=== PATIENT | male | born 1970 | race Caucasian/White ===

== ENCOUNTER 2018-07-29 14:51 | Emergency (ER) | payer SELFPAY ==
[~2018-07-29] VITALS: Ht 182.9 cm; Wt 127.0 kg
[~2018-07-29 14:51] MED LIST: AGM875T PO; BUDE0.5A2 INH; CITA20TA4 PO; CYCL10TA9 PO; DIVA500T PO; DOXE50CA3 PO; GENT3.5O18 OU; HYDR-1231 PO; HYDR-34 PO; HYDR-3448 PO; IBP800T; IBP800T PO; PRD20T PO; Prednisone PO; QTP25T PO; RT-ALBUINH IH; TRAM-21 PO; TRAM50TA2 PO; TRM50T PO; [UNRECOGNIZED DRUG - OTHER]; [UNRECOGNIZED DRUG - OTHER]
--- OUTSIDE RECORDS SUMMARY | 2018-07-29 15:00 | XMS REPORT | Continuity of Care Document ---
Author Organization Unknown Address Unknown Allergies Active Description Code Type Severity Reaction Onset Reported/Identified Relationship to Patient Clinical Status Yes acetaminophen [id number] Drug Allergy Mild dizzy, itchy 12/03/2008 Yes codeine [id number] Drug Allergy Mild N/A 12/03/2008 Yes naproxen [id number] Drug Allergy Mild N/A 12/03/2008 Medications There is no data. Problems Date Dx Coded Attending Type Code Diagnosis Diagnosed By 11/07/2009 Ot V25.8 07/20/2010 Ot 682.7 07/20/2010 Ot 892.1 07/20/2010 Ot E000.8 07/20/2010 Ot E849.0 07/20/2010 Ot E920.8 07/21/2011 Ot 372.30 07/21/2011 Ot 379.93 05/06/2012 Ot 847.2 05/06/2012 Ot 922.31 05/06/2012 Ot 959.19 05/06/2012 Ot E000.8 05/06/2012 Ot E006.0 05/06/2012 Ot E849.4 05/06/2012 Ot E885.1 08/15/2012 KATHERINE HER, RICHARD Samuel Ot 296.20 08/15/2012 RICHARD MURPHY MD Ot V62.84 08/24/2012 YAS HER, FRANCK Luna Ot 780.2 08/24/2012 YAS HER, FRANCK Luna Ot 780.4 08/24/2012 YAS HER, FRANCK Luna Ot 787.01 08/26/2012 EVA KEENAN DO Ot 305.90 08/26/2012 EVA KEENAN DO Ot V62.84 10/27/2012 YAS HER, FRANCK Luna Ot 296.50 10/27/2012 YAS HER, FRANCK Luna Ot 300.00 10/27/2012 YAS HER, FRANCK T Ot 305.1 10/27/2012 YAS HER, FRANCK T Ot 873.41 10/27/2012 YAS HER, FRANCK T Ot 924.9 10/27/2012 YAS HER, FRANCK T Ot E029.9 10/27/2012 YAS HER, FRANCK T Ot E960.0 01/15/2013 TAMARA HER, PATEL Jovel Ot 724.2 02/10/2013 KATHERINE HER, RICHARD D Ot 847.9 02/10/2013 KATHERINE HER, RICHARD D Ot 959.19 02/10/2013 KATHERINE HER, RICHARD D Ot E000.8 02/10/2013 KATHERINE HER, RICHARD D Ot E849.0 02/10/2013 KATHERINE HER, RICHARD D Ot E960.0 02/10/2013 KATHERINE HER, RICHARD D Ot V04.81 10/10/2013 RADHA HER, CHARLIE A Ot 845.00 10/10/2013 RADHA HER, CHARLIE A Ot E000.8 10/10/2013 RADHA HER, CHARLIE A Ot E002.0 10/10/2013 RADHA HER, CHARLIE A Ot E849.8 10/10/2013 RADHA HER, CHARLIE A Ot E849.9 10/10/2013 RADHA HER, CHARLIE A Ot E927.0 12/20/2013 GODFREY GACRIA DO Ot 305.90 12/20/2013 GODFREY GARCIA DO Ot 733.6 12/20/2013 GODFREY GARCIA DO Ot 786.50 02/04/2014 DEWAYNE GUARDADO MD Ot 305.1 02/04/2014 DEWAYNE GUARDADO MD Ot 338.29 02/04/2014 DEWAYNE GUARDADO MD Ot 493.22 02/04/2014 DEWAYNE GUARDADO MD Ot 780.52 02/04/2014 DEWAYNE GUARDADO MD Ot V04.81 04/07/2014 Ot V25.8 05/12/2014 Ot V25.8 Procedures There is no data. Results There is no data. Encounters ACCT No. Visit Date/Time Discharge Status Pt. Type Provider Facility Loc./Unit Complaint [id number] 01/27/2014 22:05:00 02/04/2014 10:10:00 DIS Inpatient DEBBY HER, DEWAYNE Samuel Via [facility] 4TH [id number] 12/20/2013 10:07:00 12/20/2013 11:16:00 DIS Emergency RADHA GODFREY Lizzie Via [facility] ER [id number] 10/10/2013 21:38:00 10/10/2013 22:42:00 DIS Emergency CHARLIE GARCIA MD Via [facility] ER [id number] 02/10/2013 11:22:00 02/10/2013 12:20:00 DIS Emergency RICHARD MURPHY MD Via [facility] ER [id number] 01/15/2013 08:49:00 01/15/2013 11:50:00 DIS Emergency PATEL MCDONALD MD Via [facility] ER [id number] 10/27/2012 17:47:00 10/27/2012 19:14:00 DIS Emergency FRANCK SORENSON MD Via [facility] ER [id number] 08/25/2012 21:44:00 08/26/2012 01:02:00 DIS Emergency SHLOMOSherri ASHER EVA Med Via [facility] ER [id number] 08/23/2012 22:22:00 08/24/2012 03:30:00 DIS Emergency FRANCK SORENSON MD Via [facility] ER [id number] 08/14/2012 21:59:00 08/15/2012 01:30:00 DIS Emergency RICHARD MURPHY MD Via [facility] ER [id number] 05/06/2012 12:10:00 Document Registration [id number] 07/21/2011 09:41:00 Document Registration [id number] 07/20/2010 13:42:00 Document Registration [id number] 11/08/2009 00:00:00 Document Registration [id number] 08/09/2009 14:09:00 Document Registration
--- NOTE | 2018-07-29 15:16 | ED Lower Extremity ---
General Chief Complaint: Lower Extremity Stated Complaint: LEG SWELLING Nursing Triage Note: PT AMBULATES TO ROOM 6 PT CO OF LOWER EXTREMITY SWELLING FOR A COUPLE WEEKS CO OF KNEE PAIN AND JOINT PAIN, L SWOLLEN SL WORSE. Nursing Sepsis Screen: No Definite Risk Source: patient, RN notes reviewed Exam Limitations: no limitations History of Present Illness Date Seen by Provider: Jul 29, 2018 Time Seen by Provider: 15:15 Allergies and Home Medications Allergies Coded Allergies: codeine (Unverified Allergy, Mild, 12/03/08) naproxen (Unverified Allergy, Mild, 12/03/08) acetaminophen (Unverified Adverse Reaction, Mild, dizzy, itchy, 12/03/08) Home Medications Albuterol Sulfate 1 Puff Puff, 2 PUFF IH Q4H PRN for SHORTNESS OF BREATH MDI Prescribed by: DEWAYNE GUARDADO on 02/04/14 0827 Budesonide 0.25 Mg/Ml Soln, 0.5 MG INH RTBID Prescribed by: DEWAYNE GUARDADO on 02/04/14 0824 [Prednisone] 10 MG TAB, 50 MG PO DAILY TAPER DOSE INSTRUCTIONS DAY 2-3: 50MG DAY 4-5: 40MG DAY 6-7: 30MG DAY 8-9: 20MG DAY 10-11: 10MG Prescribed by: SAMMY ANGEL on 02/04/14 0939 Past Auwqtrk-Gethiw-Zgtygk Hx Patient Social History Alcohol Use: Rarely Uses Recreational Drug Use: Yes (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 ) Smoking Status: Current Everyday Smoker Type Used: Cigarettes Recent Foreign Travel: No Contact w/Someone Who Travel: No Recent Infectious Disease Expo: No Recent Hopitalizations: No Physical Abuse: No Sexual Abuse: No Immunizations Up To Date Tetanus Booster (TDap): Unknown PED Vaccines UTD: No Date of Pneumonia Vaccine: August 06, 2013 Past Medical History Surgeries: Yes (SKIN GRAFTS TO RIGHT FOOT, RECONSTRUCTIVE SURG RIGHT WRIST, ACL REPAIR LEFT) Gallbladder Respiratory: Yes Chronic Bronchitis, COPD Cardiac: No Neurological: Yes (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) Reproductive Disorders: No Sexually Transmitted Disease: No HIV/AIDS: No Genitourinary: No Gastrointestinal: Yes (GALLBLADDER REMOVED) Musculoskeletal: No Endocrine: Yes (HYPOGLYCEMIC) HEENT: No Cancer: No Psychosocial: Yes Anxiety, Suicide Attempts, Bipolar, Depression Integumentary: No Blood Disorders: No Adverse Reaction/Blood Tranf: No Family Medical History COPD (chronic obstructive pulmonary disease) 19 MOTHER Cervical cancer 19 MOTHER DVT 19 MOTHER FH: chronic renal insufficiency 19 MOTHER FH: sleep apnea 19 MOTHER Myocardial infarction 19 MOTHER Respiratory disorder 19 MOTHER Visual disorder 19 MOTHER G8 BROTHER No Pertinent Family Hx Physical Exam Vital Signs Vital Signs - First Documented 07/29/18 14:55 Temp 97.4 Pulse 70 Resp 18 B/P (MAP) 141/101 (114) Pulse Ox 97 Capillary Refill : Less Than 3 Seconds Height, Weight, BMI Height: 6'0" Weight: 280lbs. 5.0oz. 127.288292ds; BMI Method:Stated Progress/Results/Core Measures Results/Orders Vital Signs/I&O 07/29/18 14:55 Temp 97.4 Pulse 70 Resp 18 B/P (MAP) 141/101 (114) Pulse Ox 97 Blood Pressure Mean: 114 Departure Departure-Patient Inst. Referrals: NO,LOCAL PHYSICIAN (PCP) Primary Care Physician GODFREY GARCIA DO Jul 29, 2018 15:16
[2018-07-29 15:32] LABS: BASOPHILS % (AUTO) 0 % (0-10); EOSINOPHILS # (AUTO) 0.1 10^3/uL (0.0-0.3); EOSINOPHILS % (AUTO) 2 % (0-10); HEMATOCRIT 48 % (40-54); HEMOGLOBIN 16.5 G/DL (13.3-17.7); LYMPHOCYTES # (AUTO) 2.4 X 10^3 (1.0-4.0); LYMPHOCYTES % (AUTO) 34 % (12-44); MEAN CORPUSCULAR HEMOGLOBIN 33 PG (25-34); MEAN CORPUSCULAR HGB CONC 35 G/DL (32-36); MEAN CORPUSCULAR VOLUME 97 FL (80-99); MONOCYTES # (AUTO) 0.5 X 10^3 (0.0-1.0); MONOCYTES % (AUTO) 8 % (0-12); NEUTROPHILS # (AUTO) 4.1 X 10^3 (1.8-7.8); NEUTROPHILS % (AUTO) 57 % (42-75); PLATELET COUNT 211 10^3/uL (130-400); RED CELL DISTRIBUTION WIDTH 13.4 % (10.0-14.5); WHITE BLOOD COUNT 7.2 10^3/uL (4.3-11.0)
--- NOTE | 2018-07-29 15:39 | ED Lower Extremity ---
General Chief Complaint: Lower Extremity Stated Complaint: LEG SWELLING Nursing Triage Note: PT AMBULATES TO ROOM 6 PT CO OF LOWER EXTREMITY SWELLING FOR A COUPLE WEEKS CO OF KNEE PAIN AND JOINT PAIN, L SWOLLEN SL WORSE. Nursing Sepsis Screen: No Definite Risk Source: patient Exam Limitations: no limitations History of Present Illness Date Seen by Provider: Jul 29, 2018 Time Seen by Provider: 15:08 Initial Comments 48-year-old male who presents to the emergency room with complaints of bilateral lower extremity swelling for the past 2 weeks. He reports knee and an ankle joint pain with the swelling. He denies seeing his primary care provider. He denies any shortness of breath or chest pain. He reports that the swelling is worse after being on his feet all day and is gone when he wakes up in the mornings. Pain/Injury Location: bilateral knee, bilateral ankle Allergies and Home Medications Allergies Coded Allergies: codeine (Unverified Allergy, Mild, 12/03/08) naproxen (Unverified Allergy, Mild, 12/03/08) acetaminophen (Unverified Adverse Reaction, Mild, dizzy, itchy, 12/03/08) Home Medications Albuterol Sulfate 1 Puff Puff, 2 PUFF IH Q4H PRN for SHORTNESS OF BREATH MDI Prescribed by: DEWAYNE GUARDADO on 02/04/14 0827 Budesonide 0.25 Mg/Ml Soln, 0.5 MG INH RTBID Prescribed by: DEWAYNE GUARDADO on 02/04/14 0824 [Prednisone] 10 MG TAB, 50 MG PO DAILY TAPER DOSE INSTRUCTIONS DAY 2-3: 50MG DAY 4-5: 40MG DAY 6-7: 30MG DAY 8-9: 20MG DAY 10-11: 10MG Prescribed by: SAMMY ANGEL on 02/04/14 0939 Past Fehwlex-Iiyalh-Cjkafh Hx Patient Social History Alcohol Use: Rarely Uses Recreational Drug Use: Yes (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 ) Smoking Status: Current Everyday Smoker Type Used: Cigarettes Recent Foreign Travel: No Contact w/Someone Who Travel: No Recent Infectious Disease Expo: No Recent Hopitalizations: No Physical Abuse: No Sexual Abuse: No Immunizations Up To Date Tetanus Booster (TDap): Unknown PED Vaccines UTD: No Date of Pneumonia Vaccine: August 06, 2013 Past Medical History Surgeries: Yes (SKIN GRAFTS TO RIGHT FOOT, RECONSTRUCTIVE SURG RIGHT WRIST, ACL REPAIR LEFT) Gallbladder Respiratory: Yes Chronic Bronchitis, COPD Cardiac: No Neurological: Yes (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) Reproductive Disorders: No Sexually Transmitted Disease: No HIV/AIDS: No Genitourinary: No Gastrointestinal: Yes (GALLBLADDER REMOVED) Musculoskeletal: No Endocrine: Yes (HYPOGLYCEMIC) HEENT: No Cancer: No Psychosocial: Yes Anxiety, Suicide Attempts, Bipolar, Depression Integumentary: No Blood Disorders: No Adverse Reaction/Blood Tranf: No Family Medical History COPD (chronic obstructive pulmonary disease) 19 MOTHER Cervical cancer 19 MOTHER DVT 19 MOTHER FH: chronic renal insufficiency 19 MOTHER FH: sleep apnea 19 MOTHER Myocardial infarction 19 MOTHER Respiratory disorder 19 MOTHER Visual disorder 19 MOTHER G8 BROTHER No Pertinent Family Hx Physical Exam Vital Signs Vital Signs - First Documented 07/29/18 14:55 Temp 97.4 Pulse 70 Resp 18 B/P (MAP) 141/101 (114) Pulse Ox 97 Capillary Refill : Less Than 3 Seconds Height, Weight, BMI Height: 6'0" Weight: 280lbs. 5.0oz. 127.233609bo; BMI Method:Stated Progress/Results/Core Measures Results/Orders Lab Results Laboratory Tests Test 07/29/18 15:25 Range/Units White Blood Count 7.2 4.3-11.0 10^3/uL Red Blood Count 4.94 4.35-5.85 10^6/uL Hemoglobin 16.5 13.3-17.7 G/DL Hematocrit 48 40-54 % Mean Corpuscular Volume 97 80-99 FL Mean Corpuscular Hemoglobin 33 25-34 PG Mean Corpuscular Hemoglobin Concent 35 32-36 G/DL Red Cell Distribution Width 13.4 10.0-14.5 % Platelet Count 211 130-400 10^3/uL Mean Platelet Volume 10.0 7.4-10.4 FL Neutrophils (%) (Auto) 57 42-75 % Lymphocytes (%) (Auto) 34 12-44 % Monocytes (%) (Auto) 8 0-12 % Eosinophils (%) (Auto) 2 0-10 % Basophils (%) (Auto) 0 0-10 % Neutrophils # (Auto) 4.1 1.8-7.8 X 10^3 Lymphocytes # (Auto) 2.4 1.0-4.0 X 10^3 Monocytes # (Auto) 0.5 0.0-1.0 X 10^3 Eosinophils # (Auto) 0.1 0.0-0.3 10^3/uL Basophils # (Auto) 0.0 0.0-0.1 10^3/uL D-Dimer 0.30 0.00-0.49 UG/ML Sodium Level 139 135-145 MMOL/L Potassium Level 4.1 3.6-5.0 MMOL/L Chloride Level 104 98-107 MMOL/L Carbon Dioxide Level 28 21-32 MMOL/L Anion Gap 7 5-14 MMOL/L Blood Urea Nitrogen 9 7-18 MG/DL Creatinine 0.88 0.60-1.30 MG/DL Estimat Glomerular Filtration Rate > 60 BUN/Creatinine Ratio 10 Glucose Level 196 H 70-105 MG/DL Calcium Level 8.9 8.5-10.1 MG/DL Corrected Calcium 9.1 8.5-10.1 MG/DL Total Bilirubin 0.5 0.1-1.0 MG/DL Aspartate Amino Transf (AST/SGOT) 40 H 5-34 U/L Alanine Aminotransferase (ALT/SGPT) 83 H 0-55 U/L Alkaline Phosphatase 101 40-136 U/L B-Type Natriuretic Peptide 12.9 <100.0 PG/ML Total Protein 6.5 6.4-8.2 GM/DL Albumin 3.7 3.2-4.5 GM/DL My Orders Orders - BRITTANY POMPAIS BNP (07/29/18 15:17) Cbc With Automated Diff (07/29/18 15:17) Comprehensive Metabolic Panel (07/29/18 15:17) Fibrin Degradation Products (07/29/18 15:17) Vital Signs/I&O 07/29/18 14:55 Temp 97.4 Pulse 70 Resp 18 B/P (MAP) 141/101 (114) Pulse Ox 97 Blood Pressure Mean: 114 Departure Impression Primary Impression: Dependent edema Disposition: 01 HOME, SELF-CARE Condition: Stable/Unchanged Departure-Patient Inst. Decision time for Depature: 16:25 Referrals: NO,LOCAL PHYSICIAN (PCP) Primary Care Physician Patient Instructions: Dependent Edema (DC) Add. Discharge Instructions: Wear the compression stockings while awake. Remove at night time. Follow-up with your primary care provider within 1 week for recheck. Return back to the emergency room for worsening symptoms or concerns as needed. All discharge instructions reviewed with patient and/or family. Voiced understanding. MECHE POMPA Jul 29, 2018 15:39
[2018-07-29 15:49] LABS: ALANINE AMINOTRANSFERASE 83 U/L (0-55); ALBUMIN 3.7 GM/DL (3.2-4.5); ALKALINE PHOSPHATASE 101 U/L (40-136); BILIRUBIN,TOTAL 0.5 MG/DL (0.1-1.0); BUN/CREATININE RATIO 10; CALCIUM 8.9 MG/DL (8.5-10.1); CARBON DIOXIDE 28 MMOL/L (21-32); CHLORIDE 104 MMOL/L (98-107); CREATININE SERUM 0.88 MG/DL (0.60-1.30); GFR ESTIMATED > 60; GLUCOSE 196 MG/DL (70-105); POTASSIUM 4.1 MMOL/L (3.6-5.0); SODIUM 139 MMOL/L (135-145); TOTAL PROTEIN 6.5 GM/DL (6.4-8.2)
[2018-07-29 16:49] VITALS: BP 141/101
== END 2018-07-29 16:50 | disposition home or self-care (01) ==
LOC: EDUNIT# 14:51 → ER 14:52
DX: R60.0 Localized edema (principal); J44.9 Chronic obstructive pulmonary disease, unspecified; G40.409 Other generalized epilepsy and epileptic syndromes, not intractable, without status epilepticus; F41.9 Anxiety disorder, unspecified; F31.9 Bipolar disorder, unspecified; F17.210 Nicotine dependence, cigarettes, uncomplicated; Z98.890 Other specified postprocedural states; Z91.5 Personal history of self-harm; Z80.49 Family history of malignant neoplasm of other genital organs; Z82.49 Family history of ischemic heart disease and other diseases of the circulatory system; Z94.5 Skin transplant status; Z88.5 Allergy status to narcotic agent; Z88.8 Allergy status to other drugs, medicaments and biological substances; Z79.52 Long term (current) use of systemic steroids
CPT/HCPCS: 36415; 80053; 83880; 85025; 85379

== ENCOUNTER 2018-09-01 13:01 | Inpatient (IN) | payer SELFPAY ==
[~2018-09-01] VITALS: Ht 182.9 cm; Wt 142.5 kg
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
[2018-09-01] MEDS ORDERED: NS IV 1000 ML 1,000 ML IV ONE ×2 (13:14→13:37)
[2018-09-01 13:24] LABS: BASOPHILS % (AUTO) 0 % (0-10); EOSINOPHILS # (AUTO) 0.1 10^3/uL (0.0-0.3); EOSINOPHILS % (AUTO) 1 % (0-10); HEMATOCRIT 51 % (40-54); HEMOGLOBIN 18.7 G/DL (13.3-17.7); LYMPHOCYTES # (AUTO) 2.3 X 10^3 (1.0-4.0); LYMPHOCYTES % (AUTO) 24 % (12-44); MEAN CORPUSCULAR HEMOGLOBIN 33 PG (25-34); MEAN CORPUSCULAR HGB CONC 37 G/DL (32-36); MEAN CORPUSCULAR VOLUME 90 FL (80-99); MONOCYTES # (AUTO) 0.6 X 10^3 (0.0-1.0); MONOCYTES % (AUTO) 6 % (0-12); NEUTROPHILS # (AUTO) 6.8 X 10^3 (1.8-7.8); NEUTROPHILS % (AUTO) 70 % (42-75); PLATELET COUNT 305 10^3/uL (130-400); RED CELL DISTRIBUTION WIDTH 12.8 % (10.0-14.5); WHITE BLOOD COUNT 9.7 10^3/uL (4.3-11.0)
[2018-09-01 13:28] LABS: BILIRUBIN,URINE NEGATIVE (NEGATIVE); CLARITY,URINE CLEAR; COLOR,URINE YELLOW; GLUCOSE, URINE (UA) 4+ (NEGATIVE); KETONES,URINE 2+ (NEGATIVE); LEUKOCYTE ESTERASE ,URINE NEGATIVE (NEGATIVE); NITRITE,URINE NEGATIVE (NEGATIVE); PH,URINE 5 (5-9); PROTEIN,URINE 1+ (NEGATIVE); UROBILINOGEN,URINE NORMAL (NORMAL)
[2018-09-01 13:36] LABS: BACTERIA,URINE NEGATIVE /HPF; GRANULAR CASTS,URINE 0-2 /LPF; HYALINE CASTS, URINE 0-2 /LPF; SQUAMOUS EPITHELIAL CELL,UR RARE /HPF; WBC,URINE 0-2 /HPF
--- NOTE | 2018-09-01 13:41 | Diagnostic Imaging Report ---
INDICATION: Generalized weakness COMPARISON: 01/30/2014 FINDINGS: Single view the chest demonstrates clear lungs bilaterally. The heart size is normal. There is no pneumothorax. Osseous structures are normal. IMPRESSION: No acute findings. Normal chest. Dictated by: Dictated on workstation # [id number]
[2018-09-01 13:42] LABS: AMPHETAMINE SCREEN, URINE POSITIVE (NEGATIVE); BARBITURATE SCREEN URINE NEGATIVE (NEGATIVE); BENZODIAZEPINES SCREEN URINE NEGATIVE (NEGATIVE); CANNABINOID SCREEN, URINE POSITIVE (NEGATIVE); COCAINE SCREEN URINE NEGATIVE (NEGATIVE); METHADONE STAT NEGATIVE (NEGATIVE); METHAMPHETAMINE SCREEN URINE S POSITIVE (NEGATIVE); OPIATE SCREEN URINE NEGATIVE (NEGATIVE); OXYCODONE STAT NEGATIVE (NEGATIVE); PROPOXYPHENE STAT NEGATIVE (NEGATIVE); TRICYCLIC ANTIDEPRESSANTS SCRE NEGATIVE (NEGATIVE)
[2018-09-01 13:43] LABS: ALANINE AMINOTRANSFERASE 116 U/L (0-55); ALBUMIN 4.2 GM/DL (3.2-4.5); ALKALINE PHOSPHATASE 169 U/L (40-136); BILIRUBIN,TOTAL 1.2 MG/DL (0.1-1.0); BUN/CREATININE RATIO 13; CALCIUM 9.5 MG/DL (8.5-10.1); CARBON DIOXIDE 26 MMOL/L (21-32); CHLORIDE 95 MMOL/L (98-107); CREATININE SERUM 1.19 MG/DL (0.60-1.30); GFR ESTIMATED > 60; POTASSIUM 4.1 MMOL/L (3.6-5.0); SODIUM 137 MMOL/L (135-145); TOTAL PROTEIN 7.8 GM/DL (6.4-8.2)
--- NOTE | 2018-09-01 13:44 | ED General ---
General Chief Complaint: Glucose Problems Stated Complaint: LETHARGIC,DIZZINESS Nursing Triage Note: pt states over the last 4 days he has had increased sleeping and increased urination. pt states he has a few episodes of vomiting. pt states he has had an increase in thirst. pt states he has been able to eat. pt denies diarrhea. pt denies any pmh regarding diabetes. Nursing Sepsis Screen: No Definite Risk Source of Information: Patient, Family Exam Limitations: No Limitations History of Present Illness Date Seen by Provider: September 01, 2018 Time Seen by Provider: 13:18 Initial Comments Here with report of increasing first, increasing weakness, increasing urination and overall not feeling well for the last 4 days. He is worried that he is diabetic his diabetes runs in his family. Does smoke but has been too weak to smoke over the last couple of days. Denies drugs or alcohol. Has had a few episodes of vomiting. Denies any specific pain but just has weakness. Timing/Duration: 4-5 Days, Getting Worse Severity: Moderate, Severe Associated Systoms: No Chest Pain, No Cough, No Fever/Chills; Malaise, Nausea/Vomiting; No Shortness of Air; Weakness Allergies and Home Medications Allergies Coded Allergies: codeine (Unverified Allergy, Mild, 12/03/08) naproxen (Unverified Allergy, Mild, 12/03/08) acetaminophen (Unverified Adverse Reaction, Mild, dizzy, itchy, 12/03/08) Home Medications Albuterol Sulfate 1 Puff Puff, 2 PUFF IH Q4H PRN for SHORTNESS OF BREATH MDI Prescribed by: DEWAYNE GUARDADO on 02/04/14826 Budesonide 0.25 Mg/Ml Soln, 0.5 MG INH RTBID Prescribed by: DEWAYNE GUARDADO on 02/04/14823 [Prednisone] 10 MG TAB, 50 MG PO DAILY TAPER DOSE INSTRUCTIONS DAY 2-3: 50MG DAY 4-5: 40MG DAY 6-7: 30MG DAY 8-9: 20MG DAY 10-11: 10MG Prescribed by: SAMMY ANGEL on 02/04/14 0939 Patient Home Medication List Home Medication List Reviewed: Yes Review of Systems Review of Systems Constitutional: see HPI; No chills, No fever EENTM: see HPI Respiratory: No cough; short of breath Cardiovascular: No edema Gastrointestinal: No abdominal pain; nausea, vomiting Genitourinary: frequency; No pain Musculoskeletal: No muscle pain; muscle weakness Skin: no symptoms reported Psychiatric/Neurological: Denies Headache, Denies Numbness; Weakness All Other Systems Reviewed Negative Unless Noted: Yes Past Nxrhatn-Vjuwsr-Lomzny Hx Past Med/Social Hx: Reviewed Nursing Past Med/Soc Hx Patient Social History Alcohol Use: Denies Use Recreational Drug Use: Yes (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) Smoking Status: Current Everyday Smoker Type Used: Cigarettes Recent Foreign Travel: No Contact w/Someone Who Travel: No Recent Infectious Disease Expo: No Recent Hopitalizations: No Physical Abuse: No Sexual Abuse: No Mistreated: No Fear: No Immunizations Up To Date Tetanus Booster (TDap): Unknown PED Vaccines UTD: No Date of Pneumonia Vaccine: August 06, 2013 Past Medical History Surgeries: Yes (SKIN GRAFTS TO RIGHT FOOT, RECONSTRUCTIVE SURG RIGHT WRIST, ACL REPAIR LEFT) Gallbladder Respiratory: Yes Chronic Bronchitis, COPD Cardiac: No Neurological: Yes (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) Reproductive Disorders: No Sexually Transmitted Disease: No HIV/AIDS: No Genitourinary: No Gastrointestinal: Yes (GALLBLADDER REMOVED) Musculoskeletal: No Endocrine: Yes (HYPOGLYCEMIC) HEENT: No Cancer: No Psychosocial: Yes Anxiety, Suicide Attempts, Bipolar, Depression Integumentary: No Blood Disorders: No Adverse Reaction/Blood Tranf: No Family Medical History Reviewed Nursing Family Hx COPD (chronic obstructive pulmonary disease) 19 MOTHER Cervical cancer 19 MOTHER DVT 19 MOTHER FH: chronic renal insufficiency 19 MOTHER FH: sleep apnea 19 MOTHER Myocardial infarction 19 MOTHER Respiratory disorder 19 MOTHER Visual disorder 19 MOTHER G8 BROTHER No Pertinent Family Hx Physical Exam Vital Signs Vital Signs - First Documented 09/01/18 13:15 Temp 97.0 Pulse 104 Resp 18 B/P (MAP) 122/109 (113) Capillary Refill : Less Than 3 Seconds Height, Weight, BMI Height: 6'0" Weight: 280lbs. 5.0oz. 127.634409ri; 37.97 BMI Method:Stated General Appearance: No Apparent Distress, WD/WN HEENT: PERRL/EOMI, Pharynx Normal Neck: Non Tender, Supple Respiratory: Lungs Clear, Normal Breath Sounds Cardiovascular: Regular Rate, Rhythm, No Murmur Gastrointestinal: Non Tender, Soft Back: Normal Inspection, No CVA Tenderness, No Vertebral Tenderness Extremity: Normal Range of Motion, Non Tender Neurologic/Psychiatric: Alert, Oriented x3 Skin: Normal Color, Warm/Dry Progress/Results/Core Measures Suspected Sepsis Recent Fever Within 48 Hours: No Infection Criteria Present: None New/Unexplained Altered Menta: No Sepsis Screen: No Definite Risk SIRS Temperature:97.0 Pulse: 104 Respiratory Rate: 18 Laboratory Tests 09/01/18 13:15: White Blood Count 9.7 Blood Pressure 122 /109 Mean: 113 Laboratory Tests 09/01/18 13:15: Creatinine 1.19, Platelet Count 305, Total Bilirubin 1.2H Results/Orders Lab Results Laboratory Tests Test 09/01/18 13:15 09/01/18 13:17 09/01/18 13:23 09/01/18 13:47 Range/Units White Blood Count 9.7 4.3-11.0 10^3/uL Red Blood Count 5.71 4.35-5.85 10^6/uL Hemoglobin 18.7 H 13.3-17.7 G/DL Hematocrit 51 40-54 % Mean Corpuscular Volume 90 80-99 FL Mean Corpuscular Hemoglobin 33 25-34 PG Mean Corpuscular Hemoglobin Concent 37 H 32-36 G/DL Red Cell Distribution Width 12.8 10.0-14.5 % Platelet Count 305 130-400 10^3/uL Mean Platelet Volume 11.0 H 7.4-10.4 FL Neutrophils (%) (Auto) 70 42-75 % Lymphocytes (%) (Auto) 24 12-44 % Monocytes (%) (Auto) 6 0-12 % Eosinophils (%) (Auto) 1 0-10 % Basophils (%) (Auto) 0 0-10 % Neutrophils # (Auto) 6.8 1.8-7.8 X 10^3 Lymphocytes # (Auto) 2.3 1.0-4.0 X 10^3 Monocytes # (Auto) 0.6 0.0-1.0 X 10^3 Eosinophils # (Auto) 0.1 0.0-0.3 10^3/uL Basophils # (Auto) 0.0 0.0-0.1 10^3/uL Sodium Level 137 135-145 MMOL/L Potassium Level 4.1 3.6-5.0 MMOL/L Chloride Level 95 L 98-107 MMOL/L Carbon Dioxide Level 26 21-32 MMOL/L Anion Gap 16 H 5-14 MMOL/L Blood Urea Nitrogen 15 7-18 MG/DL Creatinine 1.19 0.60-1.30 MG/DL Estimat Glomerular Filtration Rate > 60 BUN/Creatinine Ratio 13 Glucose Level 429 *H 70-105 MG/DL Calcium Level 9.5 8.5-10.1 MG/DL Corrected Calcium 9.3 8.5-10.1 MG/DL Total Bilirubin 1.2 H 0.1-1.0 MG/DL Aspartate Amino Transf (AST/SGOT) 92 H 5-34 U/L Alanine Aminotransferase (ALT/SGPT) 116 H 0-55 U/L Alkaline Phosphatase 169 H 40-136 U/L Troponin I < 0.028 <0.028 NG/ML C-Reactive Protein High Sensitivity 1.38 H 0.00-0.50 MG/DL Total Protein 7.8 6.4-8.2 GM/DL Albumin 4.2 3.2-4.5 GM/DL Thyroid Stimulating Hormone (TSH) 3.42 0.35-4.94 UIU/ML Glucometer 411 *H 70-110 MG/DL Urine Color YELLOW Urine Clarity CLEAR Urine pH 5 5-9 Urine Specific [place] 1.020 1.016-1.022 Urine Protein 1+ H NEGATIVE Urine Glucose (UA) 4+ H NEGATIVE Urine Ketones 2+ H NEGATIVE Urine Nitrite NEGATIVE NEGATIVE Urine Bilirubin NEGATIVE NEGATIVE Urine Urobilinogen NORMAL NORMAL MG/DL Urine Leukocyte Esterase NEGATIVE NEGATIVE Urine RBC (Auto) NEGATIVE NEGATIVE Urine RBC NONE /HPF Urine WBC 0-2 /HPF Urine Squamous Epithelial Cells RARE /HPF Urine Crystals NONE /LPF Urine Bacteria NEGATIVE /HPF Urine Casts PRESENT /LPF Urine Hyaline Casts 0-2 H /LPF Urine Granular Casts 0-2 H /LPF Urine Mucus NEGATIVE /LPF Urine Culture Indicated NO Urine Opiates Screen NEGATIVE NEGATIVE Urine Oxycodone Screen NEGATIVE NEGATIVE Urine Methadone Screen NEGATIVE NEGATIVE Urine Propoxyphene Screen NEGATIVE NEGATIVE Urine Barbiturates Screen NEGATIVE NEGATIVE Ur Tricyclic Antidepressants Screen NEGATIVE NEGATIVE Urine Phencyclidine Screen NEGATIVE NEGATIVE Urine Amphetamines Screen POSITIVE H NEGATIVE Urine Methamphetamines Screen POSITIVE H NEGATIVE Urine Benzodiazepines Screen NEGATIVE NEGATIVE Urine Cocaine Screen NEGATIVE NEGATIVE Urine Cannabinoids Screen POSITIVE H NEGATIVE Blood Gas Puncture Site RT RAD Blood Gas Patient Temperature 98.7 Arterial Blood pH 7.39 7.37-7.43 Arterial Blood Partial Pressure CO2 46 H 35-45 MMHG Arterial Blood Partial Pressure O2 64 L 79-93 MMHG Arterial Blood HCO3 27 23-27 MMOL/L Arterial Blood Total CO2 28.6 21.0-31.0 MMOL/L Arterial Blood Oxygen Saturation 95 94-100 % Arterial Blood Base Excess 2.7 H -2.5-2.5 MMOL/L Gordo Test YES-POS Blood Gas Ventilator Setting NO Blood Gas Inspired Oxygen ROOM AIR My Orders Orders - RICHARD MUPRHY MD Cbc With Automated Diff (09/01/18 13:14) Comprehensive Metabolic Panel (09/01/18 13:14) Hs C Reactive Protein (09/01/18 13:14) Drug Screen Stat (Urine) (09/01/18 13:14) Thyroid Stimulating Hormone (09/01/18 13:14) Troponin I (09/01/18 13:14) Ua Culture If Indicated (09/01/18 13:14) Accucheck Stat ONCE (09/01/18 13:14) Chest 1 View, Ap/Pa Only (09/01/18 13:14) Ekg Tracing (09/01/18 13:14) Monitor-Rhythm Ecg Trace Only (09/01/18 13:14) Ed Iv/Invasive Line Start (09/01/18 13:14) Ns Iv 1000 Ml (Sodium Chloride 0.9%) (09/01/18 13:14) I-Stat Bedside Testing (09/01/18 13:16) Arterial Blood Gas (09/01/18 13:37) Ns Iv 1000 Ml (Sodium Chloride 0.9%) (09/01/18 13:37) Insulin (Regular) Human (Humulin R (Per (09/01/18 14:38) Medications Given in ED Current Medications Medications Dose Ordered Sig/Tyler Route Start Time Stop Time Status Last Admin Dose Admin Sodium Chloride 1,000 ml @ 0 mls/hr Q0M ONCE IV 09/01/18 13:14 09/01/18 13:16 DC 09/01/18 13:32 0 MLS/HR Vital Signs/I&O 09/01/18 13:15 Temp 97.0 Pulse 104 Resp 18 B/P (MAP) 122/109 (113) Capillary Refill : Less Than 3 Seconds Blood Pressure Mean: 113 Point of Care Testing Finger Stick Blood Glucose: 411 Progress Note : Progress Note Seen and evaluated. IV, labs, UA, normal saline 1 L bolus, i-STAT and chest x- ray ordered. We will also check EKG. Patient is tachycardic. He is also tachypneic. ECG Initial ECG Impression Date: September 01, 2018 Initial ECG Impression Time: 13:17 Initial ECG Rate: 93 Initial ECG Rhythm: Normal Sinus Comment Sinus rhythm with right axis deviation. No evidence of ST elevation [place]. Similar but progressed right axis deviation from 01/27/14. Interpreted by me. Diagnostic Imaging Diagonstic Imaging: Xray Plain Films/CT/US/NM/MRI: chest Comments NAME: ERIK LEONARD [facility] REC#: [id number] PT STATUS: REG ER : 1970 PHYSICIAN: RICHARD MURPHY MD ADMIT DATE: 09/01/18/ER Signed Date of Exam: 09/01/18 CHEST 1 VIEW, AP/PA ONLY INDICATION: Generalized weakness COMPARISON: 01/30/2014 FINDINGS: Single view the chest demonstrates clear lungs bilaterally. The heart size is normal. There is no pneumothorax. Osseous structures are normal. IMPRESSION: No acute findings. Normal chest. Dictated by: Dictated on workstation # [id number] Dict: 09/01/18 1341 Trans: 09/01/18 1341 Interpreted by: OZZIE ABDULLAHI Electronically signed by: OZZIE ABDULLAHI 09/01/18 1341 Departure Communication (Admissions) Time/Spoke to Admitting Phy: 14:42 Impression Primary Impression: New onset type 1 diabetes mellitus, uncontrolled Disposition: ADMITTED INPATIENT Condition: Stable Admissions Decision to Admit Reason: Admit from ER (General) Decision to Admit/Date: September 01, 2018 Time/Decision to Admit Time: 14:42 Departure-Patient Inst. Referrals: NO,LOCAL PHYSICIAN (PCP/Family) Primary Care Physician RICHARD MURPHY MD September 01, 2018 13:43
[2018-09-01 13:50] LABS: GLUCOSE 429 MG/DL (70-105)
[2018-09-01 13:55] LABS: ABG BASE EXCESS 2.7 MMOL/L (-2.5-2.5); ABG OXYGEN SATURATION 95 % (94-100); ABG PCO2 46 MMHG (35-45); ABG PH 7.39 (7.37-7.43); ABG PO2 64 MMHG (79-93); ABG TCO2 28.6 MMOL/L (21.0-31.0); ALLENS TEST YES-POS; INSPIRED O2 ROOM AIR; PATIENT TEMP 98.7; VENTILATOR NO
[2018-09-01] MEDS ORDERED: inSUlin (REGULAR) HUMAN 1 UNIT/0.01 ML (CHARGE PER UNIT) IV STA (14:38)
[2018-09-01 15:51] VITALS: BP 137/82
[2018-09-01] MEDS ORDERED: inSUlin ASPART (NovoLOG) 1 UNIT/0.01 ML (CHARGE PER UNIT) SC SCH (16:00)
[2018-09-01] MEDS: NS IV 1000 ML 1,000 ML IV SCH (16:20)
[2018-09-01 19:50] VITALS: BP 128/70
[2018-09-01] MEDS ORDERED: inSUlin ASPART (NovoLOG) 1 UNIT/0.01 ML (CHARGE PER UNIT) SC ONE (21:15)
[2018-09-01] MEDS ORDERED: inSUlin ASPART (NovoLOG) 1 UNIT/0.01 ML (CHARGE PER UNIT) ONE (21:22)
[2018-09-01 23:38] VITALS: BP 111/76
[2018-09-02] MEDS: NS IV 1000 ML 1,000 ML IV SCH ×3 (00:08→16:01)
[2018-09-02 04:17] VITALS: BP 152/77
[2018-09-02 05:37] LABS: BASOPHILS % (AUTO) 0 % (0-10); EOSINOPHILS # (AUTO) 0.1 10^3/uL (0.0-0.3); EOSINOPHILS % (AUTO) 1 % (0-10); HEMATOCRIT 46 % (40-54); HEMOGLOBIN 16.3 G/DL (13.3-17.7); LYMPHOCYTES # (AUTO) 2.1 X 10^3 (1.0-4.0); LYMPHOCYTES % (AUTO) 31 % (12-44); MEAN CORPUSCULAR HEMOGLOBIN 33 PG (25-34); MEAN CORPUSCULAR HGB CONC 36 G/DL (32-36); MEAN CORPUSCULAR VOLUME 92 FL (80-99); MEAN PLATELET VOLUME 10.8 FL (7.4-10.4); MONOCYTES # (AUTO) 0.5 X 10^3 (0.0-1.0); MONOCYTES % (AUTO) 7 % (0-12); NEUTROPHILS # (AUTO) 4.1 X 10^3 (1.8-7.8); NEUTROPHILS % (AUTO) 61 % (42-75); PLATELET COUNT 210 10^3/uL (130-400); RED CELL DISTRIBUTION WIDTH 12.6 % (10.0-14.5); WHITE BLOOD COUNT 6.8 10^3/uL (4.3-11.0)
[2018-09-02 06:08] LABS: ALANINE AMINOTRANSFERASE 85 U/L (0-55); ALBUMIN 3.4 GM/DL (3.2-4.5); ALKALINE PHOSPHATASE 124 U/L (40-136); BILIRUBIN,TOTAL 0.8 MG/DL (0.1-1.0); BUN/CREATININE RATIO 13; CALCIUM 8.1 MG/DL (8.5-10.1); CARBON DIOXIDE 25 MMOL/L (21-32); CHLORIDE 103 MMOL/L (98-107); CREATININE SERUM 1.04 MG/DL (0.60-1.30); GFR ESTIMATED > 60; GLUCOSE 278 MG/DL (70-105); POTASSIUM 3.9 MMOL/L (3.6-5.0); SODIUM 136 MMOL/L (135-145); TOTAL PROTEIN 6.2 GM/DL (6.4-8.2)
[2018-09-02] MEDS: inSUlin ASPART (NovoLOG) 1 UNIT/0.01 ML (CHARGE PER UNIT) SC SCH ×3 (06:20→16:01)
[2018-09-02 07:29] VITALS: BP 139/83
--- NOTE | 2018-09-02 08:49 | NUR ---
PATIENT STATES HE DOES NOT CURRENTLY TAKE ANY MEDICATIONS, PRESCRIPTION OR OTC.
[2018-09-02 11:30] VITALS: BP 170/110
--- NOTE | 2018-09-02 11:40 | NUR ---
DR. MCDONALD NOTIFIED AT THIS TIME OF B/P THAT IS ELEVATED AT 170/110 NO NEW ORDERS AT THIS TIME.
--- NOTE | 2018-09-02 14:05 | NUR ---
REPORT RECEIVED FROM MARIE CARREON. ASSUMED CARE OF THE PATIENT AT THIS TIME.
[2018-09-02] MEDS ORDERED: inSUlin ASPART (NovoLOG) 1 UNIT/0.01 ML (CHARGE PER UNIT) SC SCH (16:00)
[2018-09-02 16:02] VITALS: BP 142/95
--- NOTE | 2018-09-02 16:21 | History & Physical-Hospitalist ---
History of Present Illness HPI/Chief Complaint The patient is a 48-year-old white male who presented to the emergency room with complaints of weakness, thirst, frequency of urination for about the last 2 weeks. He was found to have markedly elevated blood glucose and was admitted for treatment. Date Seen 09/02/18 Time Seen by a Provider: 16:20 Attending Physician Ramon Danielle MD PCP No,Local Physician Referring Physician Date of Admission September 01, 2018 at 14:42 Home Medications & Allergies Home Medications Reviewed patient Home Medication Reconciliation performed by pharmacy medication reconciliations model technician and/or nursing. Patients Allergies have been reviewed. Allergies Allergies Coded Allergies codeine (Unverified Allergy, Mild, 12/03/08) naproxen (Unverified Allergy, Mild, 12/03/08) acetaminophen (Unverified Adverse Reaction, Mild, dizzy, itchy, 12/03/08) Past Slgpynb-Rpeimr-Fnrquu Hx Past Med/Social Hx: Reviewed Nursing Past Med/Soc Hx Patient Social History Alcohol Use: Denies Use Recreational Drug Use: Yes (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) Smoking Status: Current Everyday Smoker Type Used: Cigarettes Recent Foreign Travel: No Contact w/other who traveled: No Recent Hopitalizations: No Recent Infectious Disease Expo: No Immunizations Up To Date Tetanus Booster (TDap): Unknown Pediatric: No Date of Pneumonia Vaccine: August 06, 2013 Past Medical History Surgeries: Gallbladder Reproductive: No Sexually Transmitted Disease: No HIV/AIDS: No Psychosocial: Anxiety, Suicide Attempts, Bipolar, Depression History of Blood Disorders: No Adverse Reaction to Blood [place]: No Family History Reviewed Nursing Family Hx COPD (chronic obstructive pulmonary disease) 19 MOTHER Cervical cancer 19 MOTHER DVT 19 MOTHER FH: chronic renal insufficiency 19 MOTHER FH: sleep apnea 19 MOTHER Myocardial infarction 19 MOTHER Respiratory disorder 19 MOTHER Visual disorder 19 MOTHER G8 BROTHER No Pertinent Family Hx Physical Exam Physical Exam Vital Signs Vital Signs - First Documented 09/01/18 09/01/18 13:15 15:41 Temp 97.0 Pulse 104 Resp 18 B/P (MAP) 122/109 (113) Pulse Ox 98 O2 Delivery Room Air Capillary Refill : Less Than 3 SecondsLess Than 3 Seconds Height, Weight, BMI Height: 6'0.00" Weight: 312lbs. 1.0oz. 141.830389sf; 41.9 BMI Method:Stated Results Results/Procedures Labs Laboratory Tests 09/01/18 13:15 09/02/18 05:00 Patient resulted labs reviewed. Clinical Quality Measures DVT/VTE Risk/Contraindication: Risk Factor Score Per Nursin RFS Level Per Nursing on Admit: 4+=Very High PATEL MCDONALD MD September 02, 2018 16:21
[2018-09-02 19:55] VITALS: BP 155/93
[2018-09-02 23:19] VITALS: BP 135/72
[2018-09-03] MEDS: NS IV 1000 ML 1,000 ML IV SCH ×2 (00:05→08:32)
[2018-09-03] MEDS: inSUlin ASPART (NovoLOG) 1 UNIT/0.01 ML (CHARGE PER UNIT) SC SCH ×2 (06:28→11:22)
[2018-09-03 08:00] VITALS: BP 155/96
[2018-09-03] MEDS ORDERED: INSU100I29 SQ (10:37)
[2018-09-03] MEDS ORDERED: GLYB2.5T4 PO (10:37)
--- NOTE | 2018-09-03 10:39 | Discharge Summary-Hospitalist ---
Diagnosis/Chief Complaint Date of Admission September 01, 2018 at 14:42 Date of Discharge Discharge Date: September 03, 2018 Discharge Diagnosis (1) Diabetes mellitus, new onset Status: Acute (2) Obesity Status: Chronic (3) Methamphetamine abuse Status: Chronic Discharge Summary Discharge Physical Exam Allergies: Coded Allergies: codeine (Unverified Allergy, Mild, 12/03/08) naproxen (Unverified Allergy, Mild, 12/03/08) acetaminophen (Unverified Adverse Reaction, Mild, dizzy, itchy, 12/03/08) Vitals & I&Os Vital Signs Date Time Temp Pulse Resp B/P (MAP) Pulse Ox O2 Delivery O2 Flow Rate FiO2 09/03/18 08:00 98.2 93 20 155/96 (115) 94 Room Air General Appearance: No Apparent Distress, WD/WN, Chronically ill, Obese Neurologic/Psychiatric: Alert, Oriented x3, No Motor/Sensory Deficits, Normal Mood/Affect Hospital Course Was the Problem List Reviewed?: Yes Patient had a brief hospital course after admitted for severely elevated glucose and thirst and polyuria. Patient was started on insulin with improved sugar control. Meth use cessation was counseled. [facility]. Patient will be DC on Levemir at night and started on OHA in morning since he was deemed a Type II DM. Labs (last 24 hrs) Laboratory Tests 09/02/18 16:02: Glucometer 267H 09/02/18 20:47: Glucometer 349H 09/03/18 05:27: Glucometer 240H 09/03/18 11:10: Glucometer 277H Patient resulted labs reviewed. Pending Labs Laboratory Tests 09/03/18 05:27: Glucometer 240 09/03/18 11:10: Glucometer 277 Discussion & Recommendations Discharge Planning: <30 minutes discharge planning Discharge Home Medications: Active Scripts Active Glyburide 2.5 Mg Tablet 2.5 Mg PO DAILY Levemir Flextouch (Insulin Detemir) 100 Unit/1 Ml Insuln.pen 40 Unit SQ HS Instructions to patient/family Please see electronic discharge instructions given to patient. Clinical Quality Measures DVT/VTE Risk/Contraindication: Risk Factor Score Per Nursin RFS Level Per Nursing on Admit: 4+=Very High Problem Qualifiers (1) Obesity: Obesity classification: adult class 3 (BMI >= 40) Serious obesity comorbidity presence: with serious comorbidity Body mass index: BMI 40.0-44.9 ANA SMITH DO September 03, 2018 10:39
--- NOTE | 2018-09-03 12:24 | NUR ---
CM/SS patient has new diabetes diagnosis. Patient concerned about being able to afford medication costs. Prescriptions for him were ran through the 340b savings plan at [facility] and patient will pick them up from there. Provided him with a glucose monitor, lancets, lancing device, and test strips for initial start up.
[2018-09-03 13:55] VITALS: BP 155/96
--- NOTE | 2018-09-03 13:55 | NUR ---
ERIK LEONARD demonstrates understanding of discharge instructions and accurately returns instructions upon questioning. Copy of Post-Discharge Instructions and Medication Discharge Instructions given to PATIENT. ERIK LENOARD is/is not able to manage continuing needs after discharge. Patients belongings returned to [facility]. Skin dry and intact; no breakdown noted. Patient discharged from 405-1 on at 1355. ERIK LEONARD left floor VIA WHEELCHAIR, accompanied by FAMILY AND STAFF.
--- NOTE | 2018-09-05 13:49 | Physician Query Clarification ---
PQ-Conflicting Diagnosis Admission/Discharge Admission Date: September 01, 2018 at 14:42 Discharge Date: September 03, 2018 at 13:55 The medical record reflects the following clinical scenario: History/Risk Factors: COPD, meth abuse, seizure disorder, MOB, family hx diabetes Clinical Findings: Glucose 429, increased thirst, polyuria, increased weakness Treatment: IV Levemir, Humulin, Novolog Question: Do you agree with the impression of type [address] Hay. Please document a response in Progress Note or Discharge Summary. 1. Yes 2. No 3. Other, with explanation of clinical findings 4. Clinically undetermined, no explanation for clinical findings. PHYSICIAN RESPONSE Do you agree w/Consulting Dx?: No Explanation of clincal finding type 2 DM Please remember a lack of response to the above will prompt a phone page by CDI/Coding staff. In responding to this query, please exercise your independent professional judgment. The purpose of this communication is to more accurately reflect the complexity of your patients condition. The fact that a question is asked does not imply that any particular answer is desired or expected. Thank you for your timely response to this clarification. Requestors name: [employer] THIS PHYSICIAN QUERY FORM IS A PERMANENT PART OF THE MEDICAL RECORD HENNA GREER September 05, 2018 13:49 ANA SMITH DO Sep 06, 2018 07:17
== END 2018-09-03 13:55 | disposition home or self-care (01) | DRG 638 ==
LOC: EDUNIT# 13:01 → ER 13:03 → 4TH 14:42 → UNDOADMIN 14:42
PROVIDERS: ADMIT Internal Medicine; ATTEND Internal Medicine
DX: E11.65 Type 2 diabetes mellitus with hyperglycemia (principal); J44.9 Chronic obstructive pulmonary disease, unspecified; F15.10 Other stimulant abuse, uncomplicated; F17.210 Nicotine dependence, cigarettes, uncomplicated; E66.01 Morbid (severe) obesity due to excess calories; Z68.41 Body mass index [BMI] 40.0-44.9, adult; G40.909 Epilepsy, unspecified, not intractable, without status epilepticus; F41.9 Anxiety disorder, unspecified; F31.9 Bipolar disorder, unspecified; Z79.4 Long term (current) use of insulin; Z91.5 Personal history of self-harm
CPT/HCPCS: 36415; 71045; 80053; 80306; 81000; 82805; 82962; 84443; 84484; 85025; 86141; 93005; 93041; 96361; 96374

== ENCOUNTER 2018-09-05 23:54 | Emergency (ER) | payer SELFPAY ==
[~2018-09-05] VITALS: Ht 182.9 cm; Wt 136.1 kg
[~2018-09-05 23:54] MED LIST changes: +GLYB2.5T4 PO; +INSU100I29 SQ
[2018-09-06] MEDS ORDERED: NS IV 1000 ML 1,000 ML IV ONE ×2 (01:12→02:28)
[2018-09-06 01:36] LABS: BASOPHILS % (AUTO) 0 % (0-10); EOSINOPHILS # (AUTO) 0.1 10^3/uL (0.0-0.3); EOSINOPHILS % (AUTO) 1 % (0-10); HEMATOCRIT 45 % (40-54); HEMOGLOBIN 16.8 G/DL (13.3-17.7); LYMPHOCYTES # (AUTO) 2.9 X 10^3 (1.0-4.0); LYMPHOCYTES % (AUTO) 33 % (12-44); MEAN CORPUSCULAR HEMOGLOBIN 33 PG (25-34); MEAN CORPUSCULAR HGB CONC 37 G/DL (32-36); MEAN CORPUSCULAR VOLUME 90 FL (80-99); MEAN PLATELET VOLUME 11.6 FL (7.4-10.4); MONOCYTES # (AUTO) 0.7 X 10^3 (0.0-1.0); MONOCYTES % (AUTO) 8 % (0-12); NEUTROPHILS % (AUTO) 57 % (42-75); PLATELET COUNT 207 10^3/uL (130-400); RED CELL DISTRIBUTION WIDTH 12.9 % (10.0-14.5); WHITE BLOOD COUNT 8.8 10^3/uL (4.3-11.0)
[2018-09-06 01:54] LABS: ALANINE AMINOTRANSFERASE 117 U/L (0-55); ALBUMIN 3.8 GM/DL (3.2-4.5); ALKALINE PHOSPHATASE 140 U/L (40-136); AMYLASE 40 U/L (25-125); BILIRUBIN,TOTAL 0.6 MG/DL (0.1-1.0); BUN/CREATININE RATIO 16; CALCIUM 9.2 MG/DL (8.5-10.1); CARBON DIOXIDE 18 MMOL/L (21-32); CHLORIDE 102 MMOL/L (98-107); CREATININE SERUM 0.99 MG/DL (0.60-1.30); GFR ESTIMATED > 60; GLUCOSE 367 MG/DL (70-105); LIPASE 32 U/L (8-78); MAGNESIUM 1.9 MG/DL (1.8-2.4); POTASSIUM 4.3 MMOL/L (3.6-5.0); SODIUM 131 MMOL/L (135-145); TOTAL PROTEIN 6.9 GM/DL (6.4-8.2)
[2018-09-06 02:12] LABS: BILIRUBIN,URINE NEGATIVE (NEGATIVE); CLARITY,URINE CLEAR; COLOR,URINE YELLOW; GLUCOSE, URINE (UA) 4+ (NEGATIVE); KETONES,URINE NEGATIVE (NEGATIVE); LEUKOCYTE ESTERASE ,URINE NEGATIVE (NEGATIVE); NITRITE,URINE NEGATIVE (NEGATIVE); PH,URINE 5 (5-9); PROTEIN,URINE NEGATIVE (NEGATIVE); UROBILINOGEN,URINE NORMAL (NORMAL)
[2018-09-06 02:19] LABS: BACTERIA,URINE NEGATIVE /HPF; SQUAMOUS EPITHELIAL CELL,UR RARE /HPF
[2018-09-06 02:28] LABS: ABG BASE EXCESS -2.7 MMOL/L (-2.5-2.5); ABG OXYGEN SATURATION 96 % (94-100); ABG PCO2 40 MMHG (35-45); ABG PH 7.36 (7.37-7.43); ABG PO2 75 MMHG (79-93); ABG TCO2 23.2 MMOL/L (21.0-31.0)
[2018-09-06 02:29] LABS: AMPHETAMINE SCREEN, URINE NEGATIVE (NEGATIVE); BARBITURATE SCREEN URINE NEGATIVE (NEGATIVE); BENZODIAZEPINES SCREEN URINE NEGATIVE (NEGATIVE); CANNABINOID SCREEN, URINE NEGATIVE (NEGATIVE); COCAINE SCREEN URINE NEGATIVE (NEGATIVE); METHADONE STAT NEGATIVE (NEGATIVE); METHAMPHETAMINE SCREEN URINE S NEGATIVE (NEGATIVE); OPIATE SCREEN URINE NEGATIVE (NEGATIVE); OXYCODONE STAT NEGATIVE (NEGATIVE); PROPOXYPHENE STAT NEGATIVE (NEGATIVE); TRICYCLIC ANTIDEPRESSANTS SCRE NEGATIVE (NEGATIVE)
[2018-09-06 02:30] LABS: ALLENS TEST YES-POS; INSPIRED O2 ROOM AIR; PATIENT TEMP 97.9; VENTILATOR NO
[2018-09-06] MEDS ORDERED: inSUlin (REGULAR) HUMAN 1 UNIT/0.01 ML (CHARGE PER UNIT) IV ONE (02:30)
--- NOTE | 2018-09-06 03:37 | ED General ---
General Chief Complaint: Glucose Problems Stated Complaint: HIGH BLOOD SUGAR 436 Source of Information: Patient, Old Records History of Present Illness Date Seen by Provider: Sep 06, 2018 Time Seen by Provider: 01:00 Initial Comments PT ARRIVES VIA POV FROM HOME C/O ELEVATED BLOOD GLUCOSE PT WAS ADMITTED FROM 09/01-09/03 WITH NEW DX OF DIABETES AND WAS STARTED ON INSULIN--LEVEMIR AT HS, AND GLYBURIDE. BLOOD SUGAR WAS 406 TONIGHT, ATE AND TOOK HIS INSULIN AND RECHECKED HIS GLUCOSE AN HOUR LATER AND IT WAS 436, JUST PRIOR TO ARRIVAL, SO CAME TO ER C/O FRONTAL HEADACHE C/O NAUSEA, AND VOMITED X 1 ONGOING URINARY FREQUENCY, AND THIRST ANKLES HURT--ONGOING PROBLEM. SEEN 07/29/18 FOR LEG EDEMA. PT WITH MULTIPLE VISITS, ,MOST FOR VARIOUS PAIN COMPLAINTS. PCP: HAS NEW PT APPOINTMENT WITH [facility] 09/21/18. DID NOT HAVE DR PRIOR TO RECENT HOSPITAL ADMIT. Allergies and Home Medications Allergies Coded Allergies: codeine (Unverified Allergy, Mild, 12/03/08) naproxen (Unverified Allergy, Mild, 12/03/08) acetaminophen (Unverified Adverse Reaction, Mild, dizzy, itchy, 12/03/08) Home Medications Glyburide 2.5 Mg Tablet, 2.5 MG PO DAILY Prescribed by: ANA SMITH on 09/03/18 1037 Insulin Detemir 100 Unit/1 Ml Insuln.pen, 40 UNIT SQ HS Prescribed by: ANA SMITH on 09/03/18 1037 Patient Home Medication List Home Medication List Reviewed: Yes Review of Systems Review of Systems Constitutional: No fever; malaise, weakness Respiratory: no symptoms reported Cardiovascular: edema Gastrointestinal: see HPI; No abdominal pain; nausea, vomiting Genitourinary: see HPI; No dysuria; frequency Musculoskeletal: see HPI Skin: no symptoms reported Psychiatric/Neurological: See HPI, Headache; Denies Numbness, Denies Paresthesia, Denies Tingling, Denies Weakness Hematologic/Lymphatic: No Symptoms Reported Past Fyvrnzr-Dcrbdz-Jbzwxn Hx Patient Social History Alcohol Use: Past History (HEAVY, DAILY USE--STATES HE QUIT 02/05/15) Recreational Drug Use: Yes (+ IV METH, DAILY THC USE) Drug of Choice: + IV METH, DAILY THC USE Smoking Status: Current Everyday Smoker (2 PPD) Type Used: Cigarettes Recent Foreign Travel: No Contact w/Someone Who Travel: No Recent Hopitalizations: No Immunizations Up To Date Tetanus Booster (TDap): Unknown PED Vaccines UTD: No Date of Pneumonia Vaccine: August 06, 2013 Past Medical History Surgeries: Yes (SKIN GRAFTS TO RIGHT FOOT, RIGHT ANKLE FX/ORIF; RECONSTRUCTIVE SURG RIGHT WRIST, ACL REPAIR LEFT KNEE; LEFT INGUINAL HERNIA REPAIR; VASECTOMY "TWICE") Abdominal, Gallbladder, Orthopedic, Vasectomy Respiratory: Yes Chronic Bronchitis, COPD Cardiac: No Neurological: Yes (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) Seizure Disorder Reproductive Disorders: No Sexually Transmitted Disease: No HIV/AIDS: No Genitourinary: No Gastrointestinal: Yes (GALLBLADDER REMOVED; LEFT INGUINAL HERNIA REPAIR) Abdominal Hernia, Gall Bladder Disease Musculoskeletal: Yes Chronic Back Pain, Fractures Endocrine: Yes (DX WITH DIABETES 09/01/2018--ON INSULIN AND PILLS) HEENT: No Cancer: No Psychosocial: Yes (POLYSUBSTANCE ABUSE; MULTIPLE OVERDOSES AND SUICIDE ATTEMPTS--SUICIDAL THOUGHTS SINCE AGE 13; MULTIPLE PSYCH ADMITS) Anxiety, Suicide Attempts, Bipolar, Depression Integumentary: No Blood Disorders: No Adverse Reaction/Blood Tranf: No Family Medical History COPD (chronic obstructive pulmonary disease) 19 MOTHER Cervical cancer 19 MOTHER DVT 19 MOTHER FH: chronic renal insufficiency 19 MOTHER FH: sleep apnea 19 MOTHER Myocardial infarction 19 MOTHER Respiratory disorder 19 MOTHER Visual disorder 19 MOTHER G8 BROTHER No Pertinent Family Hx Physical Exam Vital Signs Capillary Refill : Height, Weight, BMI Height: 6'0.00" Weight: 314lbs. 2.0oz. 142.583871lf; 41.9 BMI Method:Stated General Appearance: No Apparent Distress, WD/WN, Obese, Other (UNKEMPT; CONSTANT MOVEMENTS) HEENT: PERRL/EOMI Respiratory: Normal Breath Sounds Cardiovascular: Regular Rate, Rhythm, No Edema, No Murmur Gastrointestinal: Non Tender, Soft Extremity: Normal Inspection Neurologic/Psychiatric: Alert, Oriented x3, No Motor/Sensory Deficits, ssis developer II- XII Norm as Tested, Other (SOMEWHAT ANXIOUS, TALKS RAPIDLY AT LENGTH) Skin: Normal Color, Warm/Dry, Tattoos/Piercings (MULTIPLE TATTOOS AND PIERCINES), Other (SORES/SCARS/SCABS TO FACE, ARMS, LEGS. ) Progress/Results/Core Measures Suspected Sepsis SIRS Temperature: Pulse: Respiratory Rate: Laboratory Tests 09/06/18 01:28: White Blood Count 8.8 Blood Pressure / Mean: Laboratory Tests 09/06/18 01:28: Creatinine 0.99, Platelet Count 207, Total Bilirubin 0.6 Results/Orders Lab Results Laboratory Tests Test 09/06/18 01:13 09/06/18 01:28 09/06/18 02:06 09/06/18 02:20 Range/Units Glucometer 368 H 70-110 MG/DL White Blood Count 8.8 4.3-11.0 10^3/uL Red Blood Count 5.07 4.35-5.85 10^6/uL Hemoglobin 16.8 13.3-17.7 G/DL Hematocrit 45 40-54 % Mean Corpuscular Volume 90 80-99 FL Mean Corpuscular Hemoglobin 33 25-34 PG Mean Corpuscular Hemoglobin Concent 37 H 32-36 G/DL Red Cell Distribution Width 12.9 10.0-14.5 % Platelet Count 207 130-400 10^3/uL Mean Platelet Volume 11.6 H 7.4-10.4 FL Neutrophils (%) (Auto) 57 42-75 % Lymphocytes (%) (Auto) 33 12-44 % Monocytes (%) (Auto) 8 0-12 % Eosinophils (%) (Auto) 1 0-10 % Basophils (%) (Auto) 0 0-10 % Neutrophils # (Auto) 5.0 1.8-7.8 X 10^3 Lymphocytes # (Auto) 2.9 1.0-4.0 X 10^3 Monocytes # (Auto) 0.7 0.0-1.0 X 10^3 Eosinophils # (Auto) 0.1 0.0-0.3 10^3/uL Basophils # (Auto) 0.0 0.0-0.1 10^3/uL Sodium Level 131 L 135-145 MMOL/L Potassium Level 4.3 3.6-5.0 MMOL/L Chloride Level 102 98-107 MMOL/L Carbon Dioxide Level 18 L 21-32 MMOL/L Anion Gap 11 5-14 MMOL/L Blood Urea Nitrogen 16 7-18 MG/DL Creatinine 0.99 0.60-1.30 MG/DL Estimat Glomerular Filtration Rate > 60 BUN/Creatinine Ratio 16 Glucose Level 367 H 70-105 MG/DL Calcium Level 9.2 8.5-10.1 MG/DL Corrected Calcium 9.4 8.5-10.1 MG/DL Magnesium Level 1.9 1.8-2.4 MG/DL Total Bilirubin 0.6 0.1-1.0 MG/DL Aspartate Amino Transf (AST/SGOT) 67 H 5-34 U/L Alanine Aminotransferase (ALT/SGPT) 117 H 0-55 U/L Alkaline Phosphatase 140 H 40-136 U/L Total Protein 6.9 6.4-8.2 GM/DL Albumin 3.8 3.2-4.5 GM/DL Amylase Level 40 25-125 U/L Lipase 32 8-78 U/L Serum Alcohol < 10 <10 MG/DL Urine Color YELLOW Urine Clarity CLEAR Urine pH 5 5-9 Urine Specific [place] 1.020 1.016-1.022 Urine Protein NEGATIVE NEGATIVE Urine Glucose (UA) 4+ H NEGATIVE Urine Ketones NEGATIVE NEGATIVE Urine Nitrite NEGATIVE NEGATIVE Urine Bilirubin NEGATIVE NEGATIVE Urine Urobilinogen NORMAL NORMAL MG/DL Urine Leukocyte Esterase NEGATIVE NEGATIVE Urine RBC (Auto) NEGATIVE NEGATIVE Urine RBC NONE /HPF Urine WBC NONE /HPF Urine Squamous Epithelial Cells RARE /HPF Urine Crystals NONE /LPF Urine Bacteria NEGATIVE /HPF Urine Casts NONE /LPF Urine Mucus NEGATIVE /LPF Urine Culture Indicated NO Urine Opiates Screen NEGATIVE NEGATIVE Urine Oxycodone Screen NEGATIVE NEGATIVE Urine Methadone Screen NEGATIVE NEGATIVE Urine Propoxyphene Screen NEGATIVE NEGATIVE Urine Barbiturates Screen NEGATIVE NEGATIVE Ur Tricyclic Antidepressants Screen NEGATIVE NEGATIVE Urine Phencyclidine Screen NEGATIVE NEGATIVE Urine Amphetamines Screen NEGATIVE NEGATIVE Urine Methamphetamines Screen NEGATIVE NEGATIVE Urine Benzodiazepines Screen NEGATIVE NEGATIVE Urine Cocaine Screen NEGATIVE NEGATIVE Urine Cannabinoids Screen NEGATIVE NEGATIVE Blood Gas Puncture Site LEFT RADIAL Blood Gas Patient Temperature 97.9 Arterial Blood pH 7.36 L 7.37-7.43 Arterial Blood Partial Pressure CO2 40 35-45 MMHG Arterial Blood Partial Pressure O2 75 L 79-93 MMHG Arterial Blood HCO3 22 L 23-27 MMOL/L Arterial Blood Total CO2 23.2 21.0-31.0 MMOL/L Arterial Blood Oxygen Saturation 96 94-100 % Arterial Blood Base Excess -2.7 L -2.5-2.5 MMOL/L Gordo Test YES-POS Blood Gas Ventilator Setting NO Blood Gas Inspired Oxygen ROOM AIR Test 09/06/18 03:30 Range/Units Glucometer 277 H 70-110 MG/DL My Orders Orders - EVA KEENAN DO Accucheck Stat ONCE (09/06/18 01:12) Ed Iv/Invasive Line Start (09/06/18 01:12) Monitor-Rhythm Ecg Trace Only (09/06/18 01:12) Amylase (09/06/18 01:12) Arterial Blood Gas (09/06/18 01:12) Cbc With Automated Diff (09/06/18 01:12) Comprehensive Metabolic Panel (09/06/18 01:12) Lipase (09/06/18 01:12) Magnesium (09/06/18 01:12) Ua Culture If Indicated (09/06/18 01:12) Ed Iv/Invasive Line Start (09/06/18 01:12) Ns Iv 1000 Ml (Sodium Chloride 0.9%) (09/06/18 01:12) Alcohol (09/06/18 01:23) Drug Screen Stat (Urine) (09/06/18 01:23) Insulin (Regular) Human (Humulin R (Per (09/06/18 02:30) Ed Iv/Invasive Line Start (09/06/18 02:28) Ns Iv 1000 Ml (Sodium Chloride 0.9%) (09/06/18 02:28) Arterial Blood Draw (09/06/18 ) Accucheck Stat ONCE (09/06/18 03:07) Medications Given in ED Current Medications Medications Dose Ordered Sig/Tyler Route Start Time Stop Time Status Last Admin Dose Admin Insulin Human Regular 15 unit ONCE ONCE IV 09/06/18 02:30 09/06/18 03:49 DC 09/06/18 02:38 15 UNIT Sodium Chloride 1,000 ml @ 0 mls/hr Q0M ONCE IV 09/06/18 01:12 09/06/18 01:14 DC 09/06/18 01:44 0 MLS/HR Sodium Chloride 1,000 ml @ 0 mls/hr Q0M ONCE IV 09/06/18 02:28 09/06/18 03:49 DC 09/06/18 02:38 0 MLS/HR Vital Signs/I&O Capillary Refill : Progress Note : Progress Note REPEAT ACCUCHECK --277 NO SYMPTOMS DURING ER STAY STATES HE FEELS BETTER AT DISMISSAL. Departure Impression Primary Impression: Diabetes mellitus, new onset Additional Impressions: Hyperglycemia due to type 2 diabetes mellitus Elevated liver enzymes Disposition: HOME, SELF-CARE Condition: Improved Departure-Patient Inst. Referrals: FARAZ FERGUSON,LOCAL PHYSICIAN (PCP) Primary Care Physician [facility] Patient Instructions: Diabetes Type 2 (DC), Blood Glucose Monitoring Add. Discharge Instructions: CONTINUE YOUR MEDICATIONS PRESCRIBED CONTINUE TO FOLLOW DIABETIC DIET CONTINUE TO CHECK YOUR BLOOD SUGARS INSTRUCTED FOLLOW UP WITH [facility] NEXT WEEK FOR FURTHER CARE All discharge instructions reviewed with patient and/or family. Voiced understanding. EVA KEENAN DO Sep 06, 2018 03:37
[2018-09-06 03:52] VITALS: BP 127/86
== END 2018-09-06 04:01 | disposition home or self-care (01) ==
LOC: ER 23:56
DX: E11.65 Type 2 diabetes mellitus with hyperglycemia (principal); R94.5 Abnormal results of liver function studies; J44.9 Chronic obstructive pulmonary disease, unspecified; G40.309 Generalized idiopathic epilepsy and epileptic syndromes, not intractable, without status epilepticus; F41.9 Anxiety disorder, unspecified; F31.9 Bipolar disorder, unspecified; F15.10 Other stimulant abuse, uncomplicated; F12.10 Cannabis abuse, uncomplicated; F17.210 Nicotine dependence, cigarettes, uncomplicated; Z94.5 Skin transplant status; Z82.49 Family history of ischemic heart disease and other diseases of the circulatory system; Z80.49 Family history of malignant neoplasm of other genital organs; Z87.19 Personal history of other diseases of the digestive system; Z91.5 Personal history of self-harm; Z98.890 Other specified postprocedural states; Z96.651 Presence of right artificial knee joint; Z88.5 Allergy status to narcotic agent; Z88.8 Allergy status to other drugs, medicaments and biological substances; Z79.4 Long term (current) use of insulin
CPT/HCPCS: 36415; 36600; 80053; 80306; 80320; 81000; 82150; 82805; 82962; 83690; 83735; 85025; 93041; 96361; 96374; 99282

== ENCOUNTER 2019-11-19 14:26 | Inpatient (IN) | payer SELFPAY ==
[2019-11-19] VITALS (9 sets, daily range): BP systolic 114–162; BP diastolic 79–105
[~2019-11-19] VITALS: Ht 182 cm; Wt 134.1 kg
--- NOTE | 2019-11-19 14:37 | ED General ---
General Stated Complaint: HYPERGLYCIMIA Source of Information: Patient Exam Limitations: No Limitations History of Present Illness Date Seen by Provider: Nov 19, 2019 Time Seen by Provider: 14:35 Initial Comments To ER by EMS from home in [place], [place] with reports of lethargy and high blood sugar x1.5 weeks. hasnt seen a doctor since September of 2018 but states he does check his blood sugars 3-5 times a day and is always between 80 and 100. He reports some pain and bilateral lower extremities. He is known to be a type II diabetic, not on any medications.Received 1 liter IVF en route to the hospital by EMS. Timing/Duration: 1 Week Severity: Moderate Associated Systoms: Nausea/Vomiting Allergies and Home Medications Allergies Coded Allergies: codeine (Unverified Allergy, Mild, 12/03/08) naproxen (Unverified Allergy, Mild, 12/03/08) acetaminophen (Unverified Adverse Reaction, Mild, dizzy, itchy, 12/03/08) Home Medications Glyburide 2.5 Mg Tablet, 2.5 MG PO DAILY Prescribed by: ANA SMITH on 09/03/18 1037 Insulin Detemir 100 Unit/1 Ml Insuln.pen, 40 UNIT SQ HS Prescribed by: ANA SMITH on 09/03/18 1037 Patient Home Medication List Home Medication List Reviewed: Yes Review of Systems Review of Systems Constitutional: see HPI, other (does report excessive thirst and urination) EENTM: see HPI Respiratory: no symptoms reported Cardiovascular: no symptoms reported Genitourinary: no symptoms reported Musculoskeletal: no symptoms reported Skin: no symptoms reported Psychiatric/Neurological: No Symptoms Reported Hematologic/Lymphatic: No Symptoms Reported Immunological/Allergic: no symptoms reported Past Ynbpvrr-Ugyunt-Jzmafn Hx Patient Social History Drug of Choice: + IV METH, DAILY THC USE Type Used: Cigarettes Recent Hopitalizations: No Immunizations Up To Date Tetanus Booster (TDap): Unknown PED Vaccines UTD: No Date of Pneumonia Vaccine: August 06, 2013 Past Medical History Surgeries: Yes Abdominal, Gallbladder, Orthopedic, Vasectomy Respiratory: Yes Chronic Bronchitis, COPD Cardiac: No Neurological: Yes (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) Seizure Disorder Reproductive Disorders: No Sexually Transmitted Disease: No HIV/AIDS: No Genitourinary: No Gastrointestinal: Yes (GALLBLADDER REMOVED; LEFT INGUINAL HERNIA REPAIR) Abdominal Hernia, Gall Bladder Disease Musculoskeletal: Yes Chronic Back Pain, Fractures Endocrine: Yes (DX WITH DIABETES 09/01/2018--ON INSULIN AND PILLS) Diabetes, Non-Insulin dep HEENT: No Cancer: No Psychosocial: Yes Anxiety, Suicide Attempts, Bipolar, Depression Integumentary: No Blood Disorders: No Adverse Reaction/Blood Tranf: No Family Medical History COPD (chronic obstructive pulmonary disease) 19 MOTHER Cervical cancer 19 MOTHER DVT 19 MOTHER FH: chronic renal insufficiency 19 MOTHER FH: sleep apnea 19 MOTHER Myocardial infarction 19 MOTHER Respiratory disorder 19 MOTHER Visual disorder 19 MOTHER G8 BROTHER No Pertinent Family Hx Physical Exam Vital Signs Vital Signs - First Documented 11/19/19 14:30 Temp 36.8 Pulse 95 Resp 22 B/P (MAP) 136/90 (105) Pulse Ox 98 O2 Delivery Room Air Capillary Refill : Height, Weight, BMI Height: 6'0" Weight: 300lbs. 2.0oz. 136.486698dh; 41.9 BMI Method:Stated General Appearance: No Apparent Distress, WD/WN, Chronically ill, Obese Eyes: Bilateral Eye Normal Inspection, Bilateral Eye PERRL, Bilateral Eye EOMI Neck: Full Range of Motion, Normal Inspection Respiratory: No Accessory Muscle Use, No Respiratory Distress Cardiovascular: Regular Rate, Rhythm, Normal Peripheral Pulses Gastrointestinal: Normal Bowel Sounds, Non Tender, Soft Extremity: Normal Capillary Refill, Normal Inspection Neurologic/Psychiatric: Alert, Oriented x3 Skin: Normal Color, Warm/Dry Progress/Results/Core Measures Suspected Sepsis SIRS Temperature: Pulse: Respiratory Rate: Laboratory Tests 11/19/19 14:30: White Blood Count 8.2 Blood Pressure / Mean: Laboratory Tests 11/19/19 14:30: Creatinine 1.34H, Platelet Count 211, Total Bilirubin 0.7 Results/Orders Lab Results Laboratory Tests Test 11/19/19 14:30 11/19/19 14:33 11/19/19 14:53 Range/Units White Blood Count 8.2 4.3-11.0 10^3/uL Red Blood Count 4.64 4.35-5.85 10^6/uL Hemoglobin 15.7 13.3-17.7 G/DL Hematocrit 43 40-54 % Mean Corpuscular Volume 93 80-99 FL Mean Corpuscular Hemoglobin 34 25-34 PG Mean Corpuscular Hemoglobin Concent 37 H 32-36 G/DL Red Cell Distribution Width 12.7 10.0-14.5 % Platelet Count 211 130-400 10^3/uL Mean Platelet Volume 10.8 H 7.4-10.4 FL Neutrophils (%) (Auto) 54 42-75 % Lymphocytes (%) (Auto) 35 12-44 % Monocytes (%) (Auto) 9 0-12 % Eosinophils (%) (Auto) 1 0-10 % Basophils (%) (Auto) 0 0-10 % Neutrophils # (Auto) 4.5 1.8-7.8 X 10^3 Lymphocytes # (Auto) 2.9 1.0-4.0 X 10^3 Monocytes # (Auto) 0.8 0.0-1.0 X 10^3 Eosinophils # (Auto) 0.1 0.0-0.3 10^3/uL Basophils # (Auto) 0.0 0.0-0.1 10^3/uL Sodium Level 130 L 135-145 MMOL/L Potassium Level 4.2 3.6-5.0 MMOL/L Chloride Level 96 L 98-107 MMOL/L Carbon Dioxide Level 25 21-32 MMOL/L Anion Gap 9 5-14 MMOL/L Blood Urea Nitrogen 15 7-18 MG/DL Creatinine 1.34 H 0.60-1.30 MG/DL Estimat Glomerular Filtration Rate 57 BUN/Creatinine Ratio 11 Glucose Level 753 *H 70-105 MG/DL Calcium Level 7.7 L 8.5-10.1 MG/DL Corrected Calcium 8.1 L 8.5-10.1 MG/DL Total Bilirubin 0.7 0.1-1.0 MG/DL Aspartate Amino Transf (AST/SGOT) 23 5-34 U/L Alanine Aminotransferase (ALT/SGPT) 64 H 0-55 U/L Alkaline Phosphatase 117 40-136 U/L Total Protein 6.3 L 6.4-8.2 GM/DL Albumin 3.5 3.2-4.5 GM/DL Beta-Hydroxybutyrate (Chem panel) 0.20 0.00-0.27 MMOL/L Urine Color YELLOW Urine Clarity CLEAR Urine pH 5.5 5-9 Urine Specific [place] <=1.005 1.016-1.022 Urine Protein NEGATIVE NEGATIVE Urine Glucose (UA) 3+ H NEGATIVE Urine Ketones NEGATIVE NEGATIVE Urine Nitrite NEGATIVE NEGATIVE Urine Bilirubin NEGATIVE NEGATIVE Urine Urobilinogen 0.2 < = 1.0 MG/DL Urine Leukocyte Esterase NEGATIVE NEGATIVE Urine RBC (Auto) NEGATIVE NEGATIVE Urine RBC NONE /HPF Urine WBC NONE /HPF Urine Crystals NONE /LPF Urine Bacteria NEGATIVE /HPF Urine Casts NONE /LPF Urine Mucus NEGATIVE /LPF Urine Culture Indicated NO Urine Opiates Screen NEGATIVE NEGATIVE Urine Oxycodone Screen NEGATIVE NEGATIVE Urine Methadone Screen NEGATIVE NEGATIVE Urine Propoxyphene Screen NEGATIVE NEGATIVE Urine Barbiturates Screen NEGATIVE NEGATIVE Ur Tricyclic Antidepressants Screen NEGATIVE NEGATIVE Urine Phencyclidine Screen NEGATIVE NEGATIVE Urine Amphetamines Screen NEGATIVE NEGATIVE Urine Methamphetamines Screen NEGATIVE NEGATIVE Urine Benzodiazepines Screen NEGATIVE NEGATIVE Urine Cocaine Screen NEGATIVE NEGATIVE Urine Cannabinoids Screen NEGATIVE NEGATIVE Blood Gas Puncture Site RIGHT RADIAL Blood Gas Patient Temperature 36.8 Arterial Blood pH 7.39 7.37-7.43 Arterial Blood Partial Pressure CO2 44 35-45 MMHG Arterial Blood Partial Pressure O2 87 79-93 MMHG Arterial Blood HCO3 26 23-27 MMOL/L Arterial Blood Total CO2 27.4 21.0-31.0 MMOL/L Arterial Blood Oxygen Saturation 97 94-100 % Arterial Blood Base Excess 1.5 -2.5-2.5 MMOL/L Gordo Test POSITIVE Blood Gas Ventilator Setting NO Blood Gas Inspired Oxygen N/A My Orders Orders - NICOLE ALEMAN APRN Cbc With Automated Diff (11/19/19 14:33) Comprehensive Metabolic Panel (11/19/19 14:33) Ua Culture If Indicated (11/19/19 14:33) Drug Screen Stat (Urine) (11/19/19 14:33) Ed Iv/Invasive Line Start (11/19/19 14:33) Chest 1 View, Ap/Pa Only (11/19/19 14:33) Beta Hydroxybutyrate (11/19/19 14:33) Ns Iv 1000 Ml (Sodium Chloride 0.9%) (11/19/19 14:45) Hemoglobin A1c (11/19/19 14:33) Arterial Blood Gas (11/19/19 15:01) Insulin Determir (Per Unit) (Levemir (Pe (11/19/19 15:15) Insulin (Regular) Human (Novolin R (Per (11/19/19 15:15) Medications Given in ED Current Medications Medications Dose Ordered Sig/Tyler Route Start Time Stop Time Status Last Admin Dose Admin Insulin Detemir 20 unit ONCE ONCE SQ 11/19/19 15:15 8/13/20 15:16 DC 11/19/19 15:21 20 UNIT Insulin Human Regular 10 unit ONCE ONCE IV 11/19/19 15:15 11/19/19 15:16 DC 11/19/19 15:21 10 UNIT Vital Signs/I&O 11/19/19 14:30 Temp 36.8 Pulse 95 Resp 22 B/P (MAP) 136/90 (105) Pulse Ox 98 O2 Delivery Room Air Capillary Refill : Departure Communication (Admissions) Time/Spoke to Admitting Phy: 15:23 History of methamphetamine use and I would believe him to be under the influence of methamphetamine currently all given his restless behavior. His drug screen is negative but he also has polyuria polydipsia and very dilute urine, not sure how accurate this is. Either way will admit on an insulin drip to ICU. I called [facility] to verify that he was seen up there in October 2018(over a year ago), seen by Dr. Estela Dailey. He does have an upcoming appointment with her on November 22. Impression Primary Impression: Uncontrolled diabetes mellitus with hyperglycemia Qualified Codes: E13.65 - Other specified diabetes mellitus with hyperglycemia Disposition: ADMITTED INPATIENT Condition: Stable Admissions Decision to Admit Reason: Admit from ER (General) Decision to Admit/Date: Nov 19, 2019 Time/Decision to Admit Time: 15:11 Departure-Patient Inst. Referrals: NO,LOCAL PHYSICIAN (PCP/Family) Primary Care Physician NICOLE ALEMAN APRN Nov 19, 2019 14:37
[2019-11-19 14:40] LABS: BILIRUBIN,URINE NEGATIVE (NEGATIVE); CLARITY,URINE CLEAR; COLOR,URINE YELLOW; GLUCOSE, URINE (UA) 3+ (NEGATIVE); KETONES,URINE NEGATIVE (NEGATIVE); LEUKOCYTE ESTERASE ,URINE NEGATIVE (NEGATIVE); NITRITE,URINE NEGATIVE (NEGATIVE); PH,URINE 5.5 (5-9); PROTEIN,URINE NEGATIVE (NEGATIVE)
[2019-11-19 14:41] LABS: BASOPHILS % (AUTO) 0 % (0-10); EOSINOPHILS # (AUTO) 0.1 10^3/uL (0.0-0.3); EOSINOPHILS % (AUTO) 1 % (0-10); HEMATOCRIT 43 % (40-54); HEMOGLOBIN 15.7 G/DL (13.3-17.7); LYMPHOCYTES # (AUTO) 2.9 X 10^3 (1.0-4.0); LYMPHOCYTES % (AUTO) 35 % (12-44); MEAN CORPUSCULAR HEMOGLOBIN 34 PG (25-34); MEAN CORPUSCULAR HGB CONC 37 G/DL (32-36); MEAN CORPUSCULAR VOLUME 93 FL (80-99); MEAN PLATELET VOLUME 10.8 FL (7.4-10.4); MONOCYTES # (AUTO) 0.8 X 10^3 (0.0-1.0); MONOCYTES % (AUTO) 9 % (0-12); NEUTROPHILS # (AUTO) 4.5 X 10^3 (1.8-7.8); NEUTROPHILS % (AUTO) 54 % (42-75); PLATELET COUNT 211 10^3/uL (130-400); RED CELL DISTRIBUTION WIDTH 12.7 % (10.0-14.5); WHITE BLOOD COUNT 8.2 10^3/uL (4.3-11.0)
[2019-11-19] MEDS ORDERED: NS IV 1000 ML 1,000 ML IV SCH ×2 (14:45→17:01)
[2019-11-19 14:46] LABS: BACTERIA,URINE NEGATIVE /HPF
[2019-11-19 14:52] LABS: AMPHETAMINE SCREEN, URINE NEGATIVE (NEGATIVE); BARBITURATE SCREEN URINE NEGATIVE (NEGATIVE); BENZODIAZEPINES SCREEN URINE NEGATIVE (NEGATIVE); CANNABINOID SCREEN, URINE NEGATIVE (NEGATIVE); COCAINE SCREEN URINE NEGATIVE (NEGATIVE); METHADONE STAT NEGATIVE (NEGATIVE); METHAMPHETAMINE SCREEN URINE S NEGATIVE (NEGATIVE); OPIATE SCREEN URINE NEGATIVE (NEGATIVE); TRICYCLIC ANTIDEPRESSANTS SCRE NEGATIVE (NEGATIVE)
[2019-11-19 14:53] LABS: OXYCODONE STAT NEGATIVE (NEGATIVE); PROPOXYPHENE STAT NEGATIVE (NEGATIVE)
[2019-11-19 14:57] LABS: ALBUMIN 3.5 GM/DL (3.2-4.5); BILIRUBIN,TOTAL 0.7 MG/DL (0.1-1.0); CALCIUM 7.7 MG/DL (8.5-10.1); CREATININE SERUM 1.34 MG/DL (0.60-1.30); POTASSIUM 4.2 MMOL/L (3.6-5.0); TOTAL PROTEIN 6.3 GM/DL (6.4-8.2)
[2019-11-19 15:04] LABS: ABG BASE EXCESS 1.5 MMOL/L (-2.5-2.5); ABG OXYGEN SATURATION 97 % (94-100); ABG PCO2 44 MMHG (35-45); ABG PH 7.39 (7.37-7.43); ABG PO2 87 MMHG (79-93); ABG TCO2 27.4 MMOL/L (21.0-31.0); ALLENS TEST POSITIVE; VENTILATOR NO
[2019-11-19 15:05] LABS: PATIENT TEMP 36.8
[2019-11-19] MEDS ORDERED: inSUlin (REGULAR) HUMAN 1 UNIT/0.01 ML (CHARGE PER UNIT) IV ONE (15:15)
--- NOTE | 2019-11-19 15:32 | Diagnostic Imaging Report ---
INDICATION: Hyperglycemia. TIME OF EXAM: 03:10 p.m. COMPARISON: Correlation is made with prior chest from 09/01/2018. FINDINGS: The heart size is normal. The pulmonary vascularity is unremarkable. The lungs are clear. No infiltrate, effusion or pneumothorax is detected. IMPRESSION: No acute cardiopulmonary process is detected. Dictated by: Dictated on workstation # [id number]
[2019-11-19] MEDS ORDERED: HYDROcodone/APAP 5 MG/325 MG (LORTAB) TAB PO ONE (16:30)
--- NOTE | 2019-11-19 16:36 | History & Physical-Hospitalist ---
NOMI MCGEE MED STUDENT 11/19/19 1636: History of Present Illness HPI/Chief Complaint CC: hyperglycemia HPI: pt presents to the ED with a chief complaint of high blood sugars. pt stated that onset was about 1.5 weeks ago. pt stated that since the higher sugars started he has been feeling significantly fatigued. pt checks blood sugar levels 3-4 times a day. Associated symptoms include peripheral neuropathy in the feet. Source: patient Date Seen 11/19/19 Time Seen by a Provider: 15:45 Attending Physician Aimee Tian DO PCP No,Local Physician Referring Physician Date of Admission Nov 19, 2019 at 16:19 Home Medications & Allergies Home Medications Reviewed patient Home Medication Reconciliation performed by pharmacy medication reconciliations combination technician and/or nursing. Patients Allergies have been reviewed. patient stated that he has not been taking his previously prescribed medications Allergies Allergies Coded Allergies codeine (Unverified Allergy, Mild, 12/03/08) naproxen (Unverified Allergy, Mild, 12/03/08) acetaminophen (Unverified Adverse Reaction, Mild, dizzy, itchy, 12/03/08) Past Jbfzxpw-Kqspoo-Uhjkqz Hx Patient Social History Employed/Student: unemployed Alcohol Use: Denies Use Recreational Drug Use: Yes (THC, used to use Methamphetamines-quit 1-2 years ago) Drug of Choice: + IV METH, DAILY THC USE Smoking Status: Current Everyday Smoker Type Used: Cigarettes Recent Foreign Travel: No Contact w/other who traveled: No Recent Hopitalizations: No Recent Infectious Disease Expo: No Immunizations Up To Date Tetanus Booster (TDap): Unknown Pediatric: No Date of Pneumonia Vaccine: August 06, 2013 Past Medical History Surgeries: Abdominal, Gallbladder, Orthopedic, Vasectomy Respiratory: COPD Neurological: Neuropathy, Seizure Disorder Reproductive: No Sexually Transmitted Disease: No HIV/AIDS: No Gastrointestinal: Abdominal Hernia, Gall Bladder Disease Musculoskeletal: Chronic Back Pain, Fractures Endocrine: Diabetes, Non-Insulin dep Are Your Blood Sugars Over 250: Yes Psychosocial: Anxiety, Suicide Attempts, Bipolar, Depression History of Blood Disorders: No Adverse Reaction to Blood [place]: No Family History COPD (chronic obstructive pulmonary disease) 19 MOTHER Cervical cancer 19 MOTHER DVT 19 MOTHER FH: chronic renal insufficiency 19 MOTHER FH: sleep apnea 19 MOTHER Myocardial infarction 19 MOTHER Respiratory disorder 19 MOTHER Visual disorder 19 MOTHER G8 BROTHER No Pertinent Family Hx, Heart Disease Review of Systems Constitutional: No chills, No diaphoresis, No fever; malaise Respiratory: short of breath, wheezing Cardiovascular: no symptoms reported Gastrointestinal: no symptoms reported Musculoskeletal: see HPI Other peripheral neuropathy in hands and feet Physical Exam Physical Exam Vital Signs Vital Signs - First Documented 11/19/19 14:30 Temp 36.8 Pulse 95 Resp 22 B/P (MAP) 136/90 (105) Pulse Ox 98 O2 Delivery Room Air Capillary Refill : Less Than 3 Seconds Height, Weight, BMI Height: 6'0" Weight: 300lbs. 2.0oz. 136.259120cf; 40.00 BMI Method:Stated General Appearance: Mild Distress Neck: Non Tender Respiratory: No Accessory Muscle Use, Wheezing Cardiovascular: Regular Rate, Rhythm Gastrointestinal: Non Tender Neurologic/Psychiatric: Alert, Oriented x3 Lymphatic: No Adenopathy Results Results/Procedures Labs Laboratory Tests 11/19/19 14:30 Patient resulted labs reviewed. Assessment/Plan Admission Diagnosis Hyperglycemia Assessment and Plan Assessment Hyperglycemia Plan IV insulin Monitor blood sugar levels AIMEE TIAN DO 11/20/19 1333: History of Present Illness HPI/Chief Complaint CC: DM out of control HPI: This is a 49yoWM who presented to the ER with weakness, found to have blood sugar of 700 and severely dehydrated. We will put him on an insulin drip and provide him with supportive care. He was diagnosed with DM last year, I put him on medication, he did not have close follow-up and ran out of his medication months ago. Pt also reports burning of his feet, will start Gabapentin. Source: patient, RN/MD Exam Limitations: no limitations Date Seen 11/19/19 Time Seen by a Provider: 10:00 Past Dxekzfe-Ruzavn-Wbdpck Hx Past Med/Social Hx: Reviewed Nursing Past Med/Soc Hx, Reviewed and Corrections made Patient Social History Marrital Status: single Employed/Student: unemployed, retired Alcohol Use: Denies Use Smoking Status: Never a Smoker Family History COPD (chronic obstructive pulmonary disease) 19 MOTHER Cervical cancer 19 MOTHER DVT 19 MOTHER FH: chronic renal insufficiency 19 MOTHER FH: sleep apnea 19 MOTHER Myocardial infarction 19 MOTHER Respiratory disorder 19 MOTHER Visual disorder 19 MOTHER G8 BROTHER Review of Systems Constitutional: see HPI EENTM: see HPI Respiratory: see HPI Cardiovascular: see HPI Gastrointestinal: see HPI Genitourinary: see HPI Musculoskeletal: see HPI Skin: see HPI Psychiatric/Neurological: See HPI Physical Exam Physical Exam General Appearance: No Apparent Distress Eyes: Right Eye Normal Inspection, Right Eye PERRL HEENT: PERRL/EOMI, TMs Normal, Normal ENT Inspection, Pharynx Normal, Moist Mucous Membranes Neck: Full Range of Motion, Normal Inspection, Non Tender Respiratory: Chest Non Tender, Lungs Clear, Normal Breath Sounds, No Accessory Muscle Use, No Respiratory Distress Cardiovascular: Regular Rate, Rhythm, No Edema, No Gallop, No JVD, No Murmur, Normal Peripheral Pulses Gastrointestinal: Normal Bowel Sounds, No Organomegaly, No Pulsatile Mass, Non Tender, Soft Back: Normal Inspection, No CVA Tenderness, No Vertebral Tenderness Extremity: Normal Capillary Refill, Normal Inspection, Normal Range of Motion, Non Tender, No Calf Tenderness, No Pedal Edema Neurologic/Psychiatric: Alert, Oriented x3, No Motor/Sensory Deficits, Normal Mood/Affect Skin: Normal Color, Warm/Dry Lymphatic: No Adenopathy Assessment/Plan Admission Diagnosis Assessment: Diabetes out of control Dehydration Neuropathy Plan: IV Admission Status: Observation Reason for Inpatient Admission: severe hyperglycemia Diagnosis/Problems Diagnosis/Problems (1) Diabetes mellitus, new onset Status: Acute (2) Hyperglycemia due to type 2 diabetes mellitus Status: Acute (3) Elevated liver enzymes Status: Acute Supervisory-Addendum Brief Verification & Attestation Participated in pt care: history, MDM, physical Personally performed: exam, history, MDM, supervision of care Care discussed with: Medical Student Procedures: n/a Results interpretation: Verified all documentation Verification and Attestation of Medical Student E/M Service A medical student performed and documented this service in my presence. I reviewed and verified all information documented by the medical student and made modifications to such information, when appropriate. I personally performed the physical exam and medical decision making. Aimee Tian, Nov 20, 2019,21:25 NOMI MCGEE MED STUDENT Nov 19, 2019 16:36 AIMEE TIAN DO Nov 20, 2019 13:33
[2019-11-19] MEDS ORDERED: 1/2 NS IV SOLUTION 1,000 ML IV ONE (16:41)
[2019-11-19] MEDS ORDERED: D5 1/2 NS 1000 ML IV SOLUTION 1,000 ML IV ONE (16:41)
--- NOTE | 2019-11-19 16:49 | NUR ---
Pt arrived to ICU room 4 at this time. Pt arrived alert et oriented. Able to move self from ER bed to ICU bed at this time. New IV started by MARIE Sharma. Accucheck obtained at this time and orders initiated. Will continue to monitor.
[2019-11-19] MEDS ORDERED: ONDANSETRON 4 MG/2 ML (SDV) Z0FRAN IV PRN (17:00)
[2019-11-19] MEDS ORDERED: HYDROcodone/APAP 5 MG/325 MG (LORTAB) TAB PO PRN (17:15)
[2019-11-19] MEDS: 1/2 NS IV SOLUTION 1,000 ML IV SCH ×2 (17:28→20:46)
[2019-11-19] MEDS: POTASSIUM CL 10MEQ/50ML IVPB 50 ML IV SCH ×5 (17:29→22:32)
[2019-11-19] MEDS: ENOXAPARIN 40 MG/0.4 ML (LOVENOX) SYR SC SCH (17:29)
[2019-11-19 18:22] LABS: BUN/CREATININE RATIO 15; CALCIUM 8.2 MG/DL (8.5-10.1); CARBON DIOXIDE 24 MMOL/L (21-32); CHLORIDE 102 MMOL/L (98-107); CREATININE SERUM 0.96 MG/DL (0.60-1.30); GFR ESTIMATED > 60; GLUCOSE 254 MG/DL (70-105); POTASSIUM 3.9 MMOL/L (3.6-5.0); SODIUM 136 MMOL/L (135-145)
[2019-11-19] MEDS ORDERED: GABAPENTIN 100 MG (NEURONTIN) CAP ONE (20:41)
[2019-11-19] MEDS: GABAPENTIN 100 MG (NEURONTIN) CAP PO PRN (20:46)
[2019-11-19] MEDS ORDERED: DOCUSATE SODIUM 100 MG (COLACE) CAP PO PRN (22:15)
[2019-11-19] MEDS ORDERED: CALCIUM CARBONATE 500 MG (TUMS) TAB.CHEW PO PRN (22:15)
[2019-11-19] MEDS ORDERED: ACETAMINOPHEN 500 MG TAB (TYLENOL) PO PRN (22:15)
[2019-11-19] MEDS ORDERED: LOPERAMIDE 2 MG (IMODIUM) TABLET PO PRN (22:15)
[2019-11-19] MEDS ORDERED: ALPRAZolam 0.25 MG (XANAX) TAB PO PRN (22:15)
[2019-11-19] MEDS ORDERED: diphenhydrAMINE 25 MG TAB (BENADRYL) PO PRN (22:15)
[2019-11-19] MEDS: D5 1/2 NS 1000 ML IV SOLUTION 1,000 ML IV SCH (23:37)
[2019-11-20] VITALS (12 sets, daily range): BP systolic 124–157; BP diastolic 76–113
[2019-11-20] MEDS: POTASSIUM CL 10MEQ/50ML IVPB 50 ML IV SCH ×6 (00:33→10:37)
[2019-11-20] MEDS: 1/2 NS IV SOLUTION 1,000 ML IV SCH ×3 (00:42→09:24)
[2019-11-20] MEDS: GABAPENTIN 100 MG (NEURONTIN) CAP PO PRN ×2 (01:30→10:43)
[2019-11-20] MEDS: D5 1/2 NS 1000 ML IV SOLUTION 1,000 ML IV SCH (04:15)
[2019-11-20 04:18] LABS: BASOPHILS % (AUTO) 0 % (0-10); EOSINOPHILS # (AUTO) 0.1 10^3/uL (0.0-0.3); EOSINOPHILS % (AUTO) 1 % (0-10); HEMATOCRIT 45 % (40-54); HEMOGLOBIN 16.5 G/DL (13.3-17.7); LYMPHOCYTES # (AUTO) 2.4 X 10^3 (1.0-4.0); LYMPHOCYTES % (AUTO) 38 % (12-44); MEAN CORPUSCULAR HEMOGLOBIN 34 PG (25-34); MEAN CORPUSCULAR HGB CONC 37 G/DL (32-36); MEAN CORPUSCULAR VOLUME 93 FL (80-99); MEAN PLATELET VOLUME 11.2 FL (7.4-10.4); MONOCYTES # (AUTO) 0.5 X 10^3 (0.0-1.0); MONOCYTES % (AUTO) 7 % (0-12); NEUTROPHILS # (AUTO) 3.4 X 10^3 (1.8-7.8); NEUTROPHILS % (AUTO) 53 % (42-75); PLATELET COUNT 219 10^3/uL (130-400); RED CELL DISTRIBUTION WIDTH 13.3 % (10.0-14.5); WHITE BLOOD COUNT 6.3 10^3/uL (4.3-11.0)
[2019-11-20 04:45] LABS: BUN/CREATININE RATIO 14; CALCIUM 8.2 MG/DL (8.5-10.1); CARBON DIOXIDE 22 MMOL/L (21-32); CHLORIDE 103 MMOL/L (98-107); CREATININE SERUM 0.87 MG/DL (0.60-1.30); GFR ESTIMATED > 60; GLUCOSE 106 MG/DL (70-105); MAGNESIUM 1.7 MG/DL (1.6-2.4); POTASSIUM 3.7 MMOL/L (3.6-5.0); SODIUM 136 MMOL/L (135-145)
[2019-11-20 05:19] LABS: BAND NEUTROPHILS 1 %; LYMPHOCYTES % (MANUAL) 41 %; METAMYELOCYTES % 1 %; MONOCYTES % (MANUAL) 5 %; NEUTROPHILS % (MANUAL) 52 %; RBC MORPH NORMAL; REACTIVE LYMPHOCYTES 1 %
[2019-11-20] MEDS ORDERED: MAGNESIUM 1 GM/100 ML IVPB 100 ML IV SCH (06:00)
[2019-11-20] MEDS ORDERED: POTASSIUM CL 10MEQ/50ML IVPB 50 ML IV SCH (06:00)
[2019-11-20] MEDS ORDERED: KCL 20 MEQ TAB (K-DUR) PO SCH (06:00)
[2019-11-20] MEDS: ENOXAPARIN 40 MG/0.4 ML (LOVENOX) SYR SC SCH (06:34)
[2019-11-20] MEDS ORDERED: SENNA W/DOCUSATE (SENOKOT S) TABLET PO SCH (09:00)
--- NOTE | 2019-11-20 10:56 | NUR ---
TIMELINE NOTE BELOW: 11/20/2019 AT 1010: DR. ROBERSON AT BEDSIDE TO ASSESS PT CONDITION. PT AWAKE AND ALERT AND ABLE TO RESPOND TO DR. ROBERSON'S QUESTIONS VIA WRITING. 11/20/2019 AT 1015: DR. SMITH AT BEDSIDE TO ASSESS PT AND ORDERED THIS RN TO GIVE SOLU-MEDROL 90MG IV ONCE, SEE ORDER HX. ORDERS FROM DR. ROBERSON AT THIS TIME TO EXTUBATE PT AND PLACE HIM ON BIPAP. 11/20/2019 AT 1023: PT EXTUBATED AT THIS TIME BY RT WITHOUT INCIDENT. PT PLACED ON BIPAP 10/5 AND 40% FIO2 WITH OXYGEN SATURATION OF 93%. PT TOLERATING BIPAP WELL. WILL CONTINUE TO MONITOR.
[2019-11-20] MEDS ORDERED: PEN-53 MC (11:40)
[2019-11-20] MEDS ORDERED: INSU100I29 SQ (11:40)
[2019-11-20] MEDS ORDERED: INSU100I14 SQ (11:40)
--- NOTE | 2019-11-20 11:40 | Discharge Summary ---
Discharge Summary Hospital Course Was the Problem List Reviewed?: Yes Hospital Course Date of Admission: Nov 19, 2019 at 16:19 Admission Diagnosis : Family Physician/Provider: No,Local Physician Date of Discharge: 11/20/19 Discharge Diagnosis: Assessment: Diabetes out of control Dehydration Neuropathy Plan: IV Hospital Course: Hospital course: Pt had brief hospital course overnight, he was given IV fluids and an insulin drip, glucose improved immensely, Pt felt really good and felt like the Gabapentin was helpful so he will go home in improved condition with a small amount of insulin and he will follow up with Dr. Dailey on Saturday as scheduled. Labs and Pending Lab Test: Laboratory Tests 11/19/19 14:30: White Blood Count 8.2, Red Blood Count 4.64, Hemoglobin 15.7, Hematocrit 43, Mean Corpuscular Volume 93, Mean Corpuscular Hemoglobin 34, Mean Corpuscular Hemoglobin Concent 37H, Red Cell Distribution Width 12.7, Platelet Count 211, Mean Platelet Volume 10.8H, Neutrophils (%) (Auto) 54, Lymphocytes (%) (Auto) 35 , Monocytes (%) (Auto) 9, Eosinophils (%) (Auto) 1, Basophils (%) (Auto) 0, Neutrophils # (Auto) 4.5, Lymphocytes # (Auto) 2.9, Monocytes # (Auto) 0.8, Eosinophils # (Auto) 0.1, Basophils # (Auto) 0.0, Sodium Level 130L, Potassium Level 4.2, Chloride Level 96L, Carbon Dioxide Level 25, Anion Gap 9, Blood Urea Nitrogen 15, Creatinine 1.34H, Estimat Glomerular Filtration Rate 57, BUN/Creatinine Ratio 11, Glucose Level 753*H, Mean Blood Glucose 200H, Hemoglobin A1c 8.6H, Calcium Level 7.7L, Corrected Calcium 8.1L, Total Bilirubin 0.7, Aspartate Amino Transf (AST/SGOT) 23, Alanine Aminotransferase (ALT/SGPT) 64H, Alkaline Phosphatase 117, Total Protein 6.3L, Albumin 3.5, Beta-[place] xybutyrate (Chem panel) 0.20 11/19/19 14:33: Urine Color YELLOW, Urine Clarity CLEAR, Urine pH 5.5, Urine Specific Jbphh <=1.005, Urine Protein NEGATIVE, Urine Glucose (UA) 3+H, Urine Ketones NEGATIVE, Urine Nitrite NEGATIVE, Urine Bilirubin NEGATIVE, Urine Urobilinogen 0.2, Urine Leukocyte Esterase NEGATIVE, Urine RBC (Auto) NEGATIVE, Urine RBC NONE, Urine WBC NONE, Urine Crystals NONE, Urine Bacteria NEGATIVE, Urine Casts NONE, Urine Mucus NEGATIVE, Urine Culture Indicated NO, Urine Opiates Screen NEGATIVE, Urine Oxycodone Screen NEGATIVE, Urine Methadone Screen NEGATIVE, Urine Propoxyphene Screen NEGATIVE, Urine Barbiturates Screen NEGATIVE, Ur Tricyclic Antidepressants Screen NEGATIVE, Urine Phencyclidine Screen NEGATIVE, Urine Amphetamines Screen NEGATIVE, Urine Methamphetamines Screen NEGATIVE, Urine Benzodiazepines Screen NEGATIVE, Urine Cocaine Screen NEGATIVE, Urine Cannabinoids Screen NEGATIVE 11/19/19 14:53: Blood Gas Puncture Site RIGHT RADIAL, Blood Gas Patient Temperature 36.8, Arterial Blood pH 7.39, Arterial Blood Partial Pressure CO2 44, Arterial Blood P artial Pressure O2 87, Arterial Blood HCO3 26, Arterial Blood Total CO2 27.4, Arterial Blood Oxygen Saturation 97, Arterial Blood Base Excess 1.5, [place] Test POSITIVE, Blood Gas Ventilator Setting NO, Blood Gas Inspired Oxygen N/A 11/19/19 16:54: Glucometer 270H 11/19/19 17:55: Sodium Level 136, Potassium Level 3.9, Chloride Level 102, Carbon Dioxide Level 24, Anion Gap 10, Blood Urea Nitrogen 14, Creatinine 0.96, Estimat Glomerular Filtration Rate > 60, BUN/Creatinine Ratio 15, Glucose Level 254H, Calcium Level 8.2L 11/19/19 18:20: Glucometer 279H 11/19/19 19:27: Glucometer 309H 11/19/19 20:20: Glucometer 311H 11/19/19 21:31: Glucometer 276H 11/19/19 22:31: Glucometer 274H 11/19/19 23:35: Glucometer 241H 11/20/19 00:34: Glucometer 239H 11/20/19 01:32: Glucometer 267H 11/20/19 02:35: Glucometer 196H 11/20/19 03:23: Glucometer 123H 11/20/19 03:25: White Blood Count 6.3, Red Blood Count 4.88, Hemoglobin 16.5, Hematocrit 45, Mean Corpuscular Volume 93, Mean Corpuscular Hemoglobin 34, Mean Corpuscular Hemoglobin Concent 37H, Red Cell Distribution Width 13.3, Platelet Count 219, Mean Platelet Volume 11.2H, Neutrophils (%) (Auto) 53, Lymphocytes (%) (Auto) 38, Monocytes (%) (Auto) 7, Eosinophils (%) (Auto) 1, Basophils (%) (Auto) 0, Neutrophils # (Auto) 3.4, Lymphocytes # (Auto) 2.4, Monocytes # (Auto) 0.5, Eosinophils # (Auto) 0.1, Basophils # (Auto) 0.0, Neutrophils % (Manual) 52, Lymphocytes % (Manual) 41, Monocytes % (Manual) 5, Metamyelocytes % 1, Band Neutrophils 1, Reactive Lymphocytes 1, Blood Morphology Comment NORMAL, Sodium Level 136, Potassium Level 3.7, Chloride Level 103, Carbon Dioxide Level 22, Anion Gap 11, Blood Urea Nitrogen 12, Creatinine 0.87, Estimat Glomerular Filtration Rate > 60, BUN/Creatinine Ratio 14, Glucose Level 106H, Calcium Level 8.2L, Phosphorus Level 3.0, Magnesium Level 1.7 11/20/19 04:38: Glucometer 326H 11/20/19 05:34: Glucometer 174H 11/20/19 06:30: Glucometer 168H 11/20/19 07:21: Glucometer 172H 11/20/19 08:20: Glucometer 226H 11/20/19 09:28: Glucometer 294H 11/20/19 10:25: Glucometer 377H 11/20/19 11:25: Glucometer 236H Home Meds Active Glyburide 2.5 Mg Tablet 2.5 Mg PO DAILY Levemir Flextouch (Insulin Detemir) 100 Unit/1 Ml Insuln.pen 40 Unit SQ HS Assessment/Pt Instructions [facility] saturday Discharge Planning: <30 minutes discharge planning Discharge Instructions Pneumonia Vaccine Order Indica: Yes Discharge Physical Examination Vital Signs Vital Signs Date Time Temp Pulse Resp B/P (MAP) Pulse Ox O2 Delivery O2 Flow Rate FiO2 11/20/19 11:00 70 14 132/97 (109) 98 Room Air 11/20/19 08:00 35.9 General Appearance: No Apparent Distress, WD/WN HEENT: PERRL/EOMI, TMs Normal, Normal ENT Inspection, Pharynx Normal, Moist Mucous Membranes Respiratory: Chest Non Tender, Lungs Clear, Normal Breath Sounds, No Accessory Muscle Use, No Respiratory Distress Cardiovascular: Regular Rate, Rhythm, No Edema, No Gallop, No JVD, No Murmur, Normal Peripheral Pulses Gastrointestinal: Normal Bowel Sounds, No Organomegaly, No Pulsatile Mass, Non Tender, Soft Extremity: Normal Capillary Refill, Normal Inspection, Normal Range of Motion, Non Tender, No Calf Tenderness, No Pedal Edema Skin: Normal Color, Warm/Dry Neurologic/Psychiatric: Alert, Oriented x3, No Motor/Sensory Deficits, Normal Mood/Affect Allergies: Coded Allergies: codeine (Unverified Allergy, Mild, 12/03/08) naproxen (Unverified Allergy, Mild, 12/03/08) acetaminophen (Unverified Adverse Reaction, Mild, dizzy, itchy, 12/03/08) Discharge Summary Date of Admission Nov 19, 2019 at 16:19 Date of Discharge Discharge Date: Nov 20, 2019 Admission Diagnosis Hyperglycemia Clinical Quality Measures DVT/VTE Risk/Contraindication: Risk Factor Score Per Nursin RFS Level Per Nursing on Admit: 3=High ANA SMITH DO Nov 20, 2019 11:40
[2019-11-20] MEDS ORDERED: GABA-486 PO (12:22)
--- NOTE | 2019-11-20 12:45 | NUR ---
ERIK LEONARD demonstrates understanding of discharge instructions and accurately returns instructions upon questioning. Copy of Post-Discharge Instructions given to ERIK LEONARD. ERIK LEONARD is able to manage continuing needs after discharge. Patients belongings returned to ERIK LEONARD. Patient discharged from [facility] on 11/20/2019 at 1245. ERIK LEONARD left floor via WHEELCHAIR, accompanied by THIS RN AND SIGNIFICANT OTHER.
--- NOTE | 2019-11-20 14:12 | NUR ---
RD ASSESSMENT PMHx: COPD; seizure disorder; DM PT INTERACTION: Pt was semi-awake and pleasant during nutrition assessment. Pt states current appetite is okay. Note avg PO intake 100% x2meal, per chart review. Pt states following a low-CHO diet at home, and has no issues with chewing/swallowing food. Pt states recent issues with nausea. Pt states no recent issues with vomiting, constipation, or diarrhea, and that his last BM was 2 days ago. Note pt currently on bowel regimen of senna BID, per chart review. Pt states current DM management is "okay" and that he has not had a DM checkup since 10/2018. Note unable to determine recent HbA1c, per chart review. Note recent blood glucose reading of 294, per chart review. ABNORMAL NUTRITION-RELATED LAB VALUES LOW: Ca 8.2; HIGH: glu 294 Est. kcal needs: 2000 kcal | 15 kcal/kg Est. Pro needs: 107 g Pro | 0.8 g Pro/kg PES STATEMENT: Given current appetite and PO intake, no nutrition diagnosis at this time (NO-1.1) INTERVENTION: Continue with current diet order of CHO 60g/m 3snack diet. Offered diet education on DM management, but pt declined at this time. May attempt to offer again prior to discharge. Will continue to follow and reassess as pt needs, intake, and status change. MONITOR/EVALUATE: PO Intake; Plan of Care; Hydration Status; Weight Status; Lab Values Eliseo Mane, MS, RD, LD
--- NOTE | 2019-11-20 14:50 | NUR ---
DISCHARGE PLAN: Patient has been dismissed to home self care. There is a social service consult that has been placed d/t patient inability to afford insulin. He has been set up with [facility] for follow up care and will be able to receive his insulin and supplies through their clinic. Called the patient's listed phone number to visit with him about any questions or concerns he might have. Message left.
== END 2019-11-20 12:45 | disposition home or self-care (01) | DRG 639 ==
LOC: EDUNIT# 14:26 → ER 14:27 → ICU 16:19
PROVIDERS: ADMIT Internal Medicine; ATTEND Internal Medicine
DX: E11.65 Type 2 diabetes mellitus with hyperglycemia (principal); E11.40 Type 2 diabetes mellitus with diabetic neuropathy, unspecified; E86.0 Dehydration; Z88.5 Allergy status to narcotic agent
CPT/HCPCS: 36415; 71045; 80048; 80053; 80306; 81000; 82010; 82805; 82962; 83036; 83735; 84100; 85007; 85025; 85027; 99291

== ENCOUNTER 2020-01-27 13:43 | Emergency (ER) | payer SELFPAY ==
[~2020-01-27] VITALS: Ht 185 cm; Wt 122.0 kg
[~2020-01-27 13:43] MED LIST changes: +GABA-486 PO; +INSU100I14 SQ; +PEN-53 MC
[2020-01-27] MEDS ORDERED: NS IV 1000 ML 1,000 ML IV SCH (14:15)
[2020-01-27 14:23] LABS: BASOPHILS % (AUTO) 0 % (0-10); EOSINOPHILS # (AUTO) 0.1 10^3/uL (0.0-0.3); EOSINOPHILS % (AUTO) 1 % (0-10); HEMATOCRIT 48 % (40-54); HEMOGLOBIN 16.9 g/dL (13.3-17.7); LYMPHOCYTES % (AUTO) 26 % (12-44); MEAN CORPUSCULAR HEMOGLOBIN 33 pg (25-34); MEAN CORPUSCULAR HGB CONC 35 g/dL (32-36); MEAN CORPUSCULAR VOLUME 94 fL (80-99); MEAN PLATELET VOLUME 10.2 fL (9.0-12.2); MONOCYTES # (AUTO) 0.5 10^3/uL (0.0-1.0); MONOCYTES % (AUTO) 6 % (0-12); NEUTROPHILS # (AUTO) 5.2 10^3/uL (1.8-7.8); NEUTROPHILS % (AUTO) 67 % (42-75); PLATELET COUNT 274 10^3/uL (130-400); WHITE BLOOD COUNT 7.7 10^3/uL (4.3-11.0)
--- NOTE | 2020-01-27 14:24 | ED General ---
General Chief Complaint: Glucose Problems Stated Complaint: HIGH BLOOD SUGAR; WEAK EXTREMETIES Source of Information: Patient Exam Limitations: No Limitations History of Present Illness Date Seen by Provider: Jan 27, 2020 Time Seen by Provider: 14:23 Initial Comments To ER with high blood sugar. He is a known diabetic and is out of his Ozempic but still has his Levemir and NovoLog which she states he has been taking but has been unable to get his blood sugar below 400. He reports worsening of his vision but has not yet seen an eye doctor. Timing/Duration: 1-2 Days Severity: Moderate Associated Systoms: Denies Symptoms Allergies and Home Medications Allergies Coded Allergies: codeine (Unverified Allergy, Mild, 12/03/08) naproxen (Unverified Allergy, Mild, 12/03/08) acetaminophen (Unverified Adverse Reaction, Mild, dizzy, itchy, 12/03/08) Home Medications Gabapentin 100 Mg Capsule, 100 MG PO Q4HR PRN for Foot burning Prescribed by: ANA SMITH on 11/20/19 1222 Insulin Aspart 300 Units/3 Ml Solution, 4 UNITS SQ AC Prescribed by: ANA SMITH on 11/20/19 1140 Insulin Detemir 100 Unit/1 Ml Insuln.pen, 12 UNIT SQ HS Prescribed by: ANA SMITH on 11/20/19 1140 Patient Home Medication List Home Medication List Reviewed: Yes Review of Systems Review of Systems Constitutional: see HPI; No chills, No fever EENTM: see HPI, blurred vision Respiratory: no symptoms reported Genitourinary: no symptoms reported Musculoskeletal: no symptoms reported Skin: no symptoms reported Psychiatric/Neurological: No Symptoms Reported Hematologic/Lymphatic: No Symptoms Reported Past Cyzscdl-Ignbcj-Hfkkvz Hx Patient Social History Drug of Choice: + IV METH, DAILY THC USE Type Used: Cigarettes Recent Foreign Travel: No Contact w/Someone Who Travel: No Recent Hopitalizations: No Immunizations Up To Date Tetanus Booster (TDap): Unknown PED Vaccines UTD: No Date of Pneumonia Vaccine: August 06, 2013 Past Medical History Surgeries: Yes (hernia) Abdominal, Gallbladder, Orthopedic, Vasectomy Respiratory: Yes Chronic Bronchitis, COPD Cardiac: No Neurological: Yes (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) Neuropathy, Seizure Disorder Reproductive Disorders: No Sexually Transmitted Disease: No HIV/AIDS: No Genitourinary: No Gastrointestinal: Yes (GALLBLADDER REMOVED; LEFT INGUINAL HERNIA REPAIR) Abdominal Hernia, Gall Bladder Disease Musculoskeletal: Yes Chronic Back Pain, Fractures Endocrine: Yes (DX WITH DIABETES 09/01/2018--ON INSULIN AND PILLS) Diabetes, Non-Insulin dep HEENT: No Cancer: No Psychosocial: Yes Anxiety, Suicide Attempts, Bipolar, Depression Integumentary: No Blood Disorders: No Adverse Reaction/Blood Tranf: No Family Medical History COPD (chronic obstructive pulmonary disease) 19 MOTHER Cervical cancer 19 MOTHER DVT 19 MOTHER FH: chronic renal insufficiency 19 MOTHER FH: sleep apnea 19 MOTHER Myocardial infarction 19 MOTHER Respiratory disorder 19 MOTHER Visual disorder 19 MOTHER G8 BROTHER No Pertinent Family Hx, Heart Disease Physical Exam Vital Signs Vital Signs - First Documented 01/27/20 14:05 Temp 36.4 Pulse 90 Resp 18 B/P (MAP) 132/88 (103) Pulse Ox 98 Capillary Refill : Height, Weight, BMI Height: 6'0" Weight: 300lbs. 2.0oz. 136.292473fb; 40.00 BMI Method:Stated General Appearance: No Apparent Distress, WD/WN, Chronically ill (unkempt) Eyes: Bilateral Eye Normal Inspection, Bilateral Eye PERRL, Bilateral Eye EOMI Respiratory: Normal Breath Sounds, No Accessory Muscle Use, No Respiratory Distress Cardiovascular: Regular Rate, Rhythm, Normal Peripheral Pulses Gastrointestinal: Non Tender, Soft Extremity: Normal Capillary Refill, Normal Inspection Neurologic/Psychiatric: Alert, Oriented x3 Skin: Normal Color, Warm/Dry Progress/Results/Core Measures Suspected Sepsis SIRS Temperature: Pulse: Respiratory Rate: Laboratory Tests 01/27/20 14:10: White Blood Count 7.7 Blood Pressure / Mean: Laboratory Tests 01/27/20 14:10: Creatinine 1.12, Platelet Count 274, Total Bilirubin 0.6 Results/Orders Lab Results Laboratory Tests Test 01/27/20 14:08 01/27/20 14:10 01/27/20 14:40 01/27/20 15:07 Range/Units Glucometer 473 *H 374 H 70-110 MG/DL White Blood Count 7.7 4.3-11.0 10^3/uL Red Blood Count 5.15 4.30-5.52 10^6/uL Hemoglobin 16.9 13.3-17.7 g/dL Hematocrit 48 40-54 % Mean Corpuscular Volume 94 80-99 fL Mean Corpuscular Hemoglobin 33 25-34 pg Mean Corpuscular Hemoglobin Concent 35 32-36 g/dL Red Cell Distribution Width 11.9 10.0-14.5 % Platelet Count 274 130-400 10^3/uL Mean Platelet Volume 10.2 9.0-12.2 fL Immature Granulocyte % (Auto) 1 % Neutrophils (%) (Auto) 67 42-75 % Lymphocytes (%) (Auto) 26 12-44 % Monocytes (%) (Auto) 6 0-12 % Eosinophils (%) (Auto) 1 0-10 % Basophils (%) (Auto) 0 0-10 % Neutrophils # (Auto) 5.2 1.8-7.8 10^3/uL Lymphocytes # (Auto) 2.0 1.0-4.0 10^3/uL Monocytes # (Auto) 0.5 0.0-1.0 10^3/uL Eosinophils # (Auto) 0.1 0.0-0.3 10^3/uL Basophils # (Auto) 0.0 0.0-0.1 10^3/uL Immature Granulocyte # (Auto) 0.0 0.0-0.1 10^3/uL Sodium Level 132 L 135-145 MMOL/L Potassium Level 4.5 3.6-5.0 MMOL/L Chloride Level 101 98-107 MMOL/L Carbon Dioxide Level 19 L 21-32 MMOL/L Anion Gap 12 5-14 MMOL/L Blood Urea Nitrogen 11 7-18 MG/DL Creatinine 1.12 0.60-1.30 MG/DL Estimat Glomerular Filtration Rate > 60 BUN/Creatinine Ratio 10 Glucose Level 581 *H 70-105 MG/DL Calcium Level 8.5 8.5-10.1 MG/DL Corrected Calcium 8.5 8.5-10.1 MG/DL Total Bilirubin 0.6 0.1-1.0 MG/DL Aspartate Amino Transf (AST/SGOT) 24 5-34 U/L Alanine Aminotransferase (ALT/SGPT) 57 H 0-55 U/L Alkaline Phosphatase 173 H 40-136 U/L Total Protein 7.1 6.4-8.2 GM/DL Albumin 4.0 3.2-4.5 GM/DL Beta-Hydroxybutyrate (Chem panel) 0.10 0.00-0.27 MMOL/L Urine Color YELLOW Urine Clarity CLEAR Urine pH 5.5 5-9 Urine Specific [place] <=1.005 1.016-1.022 Urine Protein NEGATIVE NEGATIVE Urine Glucose (UA) 3+ H NEGATIVE Urine Ketones NEGATIVE NEGATIVE Urine Nitrite NEGATIVE NEGATIVE Urine Bilirubin NEGATIVE NEGATIVE Urine Urobilinogen 0.2 < = 1.0 MG/DL Urine Leukocyte Esterase NEGATIVE NEGATIVE Urine RBC (Auto) NEGATIVE NEGATIVE Urine RBC 0-2 /HPF Urine WBC NONE /HPF Urine Squamous Epithelial Cells 0-2 /HPF Urine Crystals NONE /LPF Urine Bacteria NEGATIVE /HPF Urine Casts NONE /LPF Urine Mucus NEGATIVE /LPF Urine Culture Indicated NO Urine Opiates Screen NEGATIVE NEGATIVE Urine Oxycodone Screen NEGATIVE NEGATIVE Urine Methadone Screen NEGATIVE NEGATIVE Urine Propoxyphene Screen NEGATIVE NEGATIVE Urine Barbiturates Screen NEGATIVE NEGATIVE Ur Tricyclic Antidepressants Screen NEGATIVE NEGATIVE Urine Phencyclidine Screen NEGATIVE NEGATIVE Urine Amphetamines Screen POSITIVE H NEGATIVE Urine Methamphetamines Screen NEGATIVE NEGATIVE Urine Benzodiazepines Screen NEGATIVE NEGATIVE Urine Cocaine Screen NEGATIVE NEGATIVE Urine Cannabinoids Screen NEGATIVE NEGATIVE My Orders Orders - NICOLE ALEMAN APRN Cbc With Automated Diff (01/27/20 14:11) Comprehensive Metabolic Panel (01/27/20 14:11) Ua Culture If Indicated (01/27/20 14:11) Drug Screen Stat (Urine) (01/27/20 14:11) Beta Hydroxybutyrate (01/27/20 14:11) Ed Iv/Invasive Line Start (01/27/20 14:11) Ns Iv 1000 Ml (Sodium Chloride 0.9%) (01/27/20 14:15) Insulin (Regular) Human (Novolin R (Per (01/27/20 14:30) Medications Given in ED Current Medications Medications Dose Ordered Sig/Tyler Route Start Time Stop Time Status Last Admin Dose Admin Insulin Human Regular 8 unit ONCE ONCE IV 01/27/20 14:30 01/27/20 14:31 DC 01/27/20 14:38 8 UNIT Vital Signs/I&O 01/27/20 14:05 Temp 36.4 Pulse 90 Resp 18 B/P (MAP) 132/88 (103) Pulse Ox 98 Capillary Refill : Departure Impression Primary Impression: Hyperglycemia due to type 2 diabetes mellitus Additional Impression: Methamphetamine abuse Disposition: 01 HOME, SELF-CARE Condition: Stable Departure-Patient Inst. Decision time for Depature: 15:26 Referrals: NO,LOCAL PHYSICIAN (PCP/Family) Primary Care Physician Patient Instructions: Diabetes Type 2 (DC) Add. Discharge Instructions: 1. Follow-up with [facility] 2. Return to ER for any concerns. All discharge instructions reviewed with patient and/or family. Voiced understanding. NICOLE ALEMAN APRN Jan 27, 2020 14:24
[2020-01-27] MEDS ORDERED: inSUlin (REGULAR) HUMAN 1 UNIT/0.01 ML (CHARGE PER UNIT) IV ONE (14:30)
[2020-01-27 14:35] LABS: CHLORIDE 101 MMOL/L (98-107); POTASSIUM 4.5 MMOL/L (3.6-5.0); SODIUM 132 MMOL/L (135-145)
[2020-01-27 14:36] LABS: CALCIUM 8.5 MG/DL (8.5-10.1)
[2020-01-27 14:37] LABS: TOTAL PROTEIN 7.1 GM/DL (6.4-8.2)
[2020-01-27 14:38] LABS: CARBON DIOXIDE 19 MMOL/L (21-32)
[2020-01-27 14:39] LABS: BILIRUBIN,TOTAL 0.6 MG/DL (0.1-1.0); GLUCOSE 581 MG/DL (70-105)
[2020-01-27 14:40] LABS: ALKALINE PHOSPHATASE 173 U/L (40-136)
[2020-01-27 14:41] LABS: CREATININE SERUM 1.12 MG/DL (0.60-1.30); GFR ESTIMATED > 60
[2020-01-27 14:42] LABS: BUN/CREATININE RATIO 10
[2020-01-27 14:43] LABS: ALANINE AMINOTRANSFERASE 57 U/L (0-55)
[2020-01-27 14:51] LABS: BILIRUBIN,URINE NEGATIVE (NEGATIVE); CLARITY,URINE CLEAR; COLOR,URINE YELLOW; GLUCOSE, URINE (UA) 3+ (NEGATIVE); KETONES,URINE NEGATIVE (NEGATIVE); LEUKOCYTE ESTERASE ,URINE NEGATIVE (NEGATIVE); NITRITE,URINE NEGATIVE (NEGATIVE); PH,URINE 5.5 (5-9); PROTEIN,URINE NEGATIVE (NEGATIVE)
[2020-01-27 15:01] LABS: BACTERIA,URINE NEGATIVE /HPF; RBC,URINE 0-2 /HPF; SQUAMOUS EPITHELIAL CELL,UR 0-2 /HPF
[2020-01-27 15:06] LABS: AMPHETAMINE SCREEN, URINE POSITIVE (NEGATIVE); BARBITURATE SCREEN URINE NEGATIVE (NEGATIVE); BENZODIAZEPINES SCREEN URINE NEGATIVE (NEGATIVE); CANNABINOID SCREEN, URINE NEGATIVE (NEGATIVE); COCAINE SCREEN URINE NEGATIVE (NEGATIVE); METHADONE STAT NEGATIVE (NEGATIVE); METHAMPHETAMINE SCREEN URINE S NEGATIVE (NEGATIVE); OPIATE SCREEN URINE NEGATIVE (NEGATIVE); OXYCODONE STAT NEGATIVE (NEGATIVE); PROPOXYPHENE STAT NEGATIVE (NEGATIVE); TRICYCLIC ANTIDEPRESSANTS SCRE NEGATIVE (NEGATIVE)
[2020-01-27] MEDS ORDERED: FLUCONAZOLE 150 MG TABLET (ED ONLY) PO ONE (15:30)
[2020-01-27 15:31] VITALS: BP 128/78
== END 2020-01-27 15:43 | disposition home or self-care (01) ==
LOC: EDUNIT# 13:43 → ER 13:46
DX: E11.65 Type 2 diabetes mellitus with hyperglycemia (principal); F15.10 Other stimulant abuse, uncomplicated; G40.909 Epilepsy, unspecified, not intractable, without status epilepticus; Z82.49 Family history of ischemic heart disease and other diseases of the circulatory system; Z80.49 Family history of malignant neoplasm of other genital organs; Z88.5 Allergy status to narcotic agent; Z88.6 Allergy status to analgesic agent; Z88.8 Allergy status to other drugs, medicaments and biological substances; Z79.4 Long term (current) use of insulin
CPT/HCPCS: 36415; 80053; 80306; 81000; 82010; 82962; 85025

== ENCOUNTER 2021-04-05 05:07 | Emergency (ER) | payer SELFPAY ==
[~2021-04-05] VITALS: Ht 182 cm; Wt 84.0 kg
[~2021-04-05 05:07] MED LIST changes: +GLBR2.5T PO; -GLYB2.5T4 PO
[2021-04-05] MEDS ORDERED: NS IV 1000 ML 1,000 ML IV SCH (05:15)
[2021-04-05 05:34] LABS: BASOPHILS % (AUTO) 0 % (0-10); EOSINOPHILS % (AUTO) 0 % (0-10); HEMATOCRIT 44 % (40-54); HEMOGLOBIN 15.6 g/dL (13.3-17.7); LYMPHOCYTES # (AUTO) 2.5 10^3/uL (1.0-4.0); LYMPHOCYTES % (AUTO) 33 % (12-44); MEAN CORPUSCULAR HEMOGLOBIN 32 pg (25-34); MEAN CORPUSCULAR HGB CONC 35 g/dL (32-36); MEAN CORPUSCULAR VOLUME 91 fL (80-99); MEAN PLATELET VOLUME 9.9 fL (9.0-12.2); MONOCYTES # (AUTO) 0.7 10^3/uL (0.0-1.0); MONOCYTES % (AUTO) 9 % (0-12); NEUTROPHILS # (AUTO) 4.4 10^3/uL (1.8-7.8); NEUTROPHILS % (AUTO) 57 % (42-75); PLATELET COUNT 269 10^3/uL (130-400); WHITE BLOOD COUNT 7.7 10^3/uL (4.3-11.0)
[2021-04-05 05:42] LABS: ALBUMIN 3.5 GM/DL (3.2-4.5); CHLORIDE 100 MMOL/L (98-107); POTASSIUM 4.1 MMOL/L (3.6-5.0); SODIUM 133 MMOL/L (135-145)
--- NOTE | 2021-04-05 05:42 | ED Cough/URI ---
General Chief Complaint: Respiratory Problems Stated Complaint: SOB Nursing Triage Note: Patient presented to the ER today with complaints of shortness of breath x 1 week. Patient states he was exposed to his covid + neighbor. Source: patient, EMS (EVA MARRUFO DO) History of Present Illness Date Seen by Provider: Apr 05, 2021 Time Seen by Provider: 05:08 Initial Comments PT ARRIVES VIA EMS FROM HOME AT [facility] PT STATES HE HAS BEEN SICK "FOR ABOUT A WEEK"--PT CANNOT STATE WHAT DAY HE ACTUALLY BEGAN FEELING ILL C/O COUGH C/O SHORTNESS OF BREATH C/O SUBJECTIVE FEVER AND CHILLS C/O SCRATCHY THROAT C/O LOSS OF TASTE AND SMELL C/O NAUSEA, NO VOMITING. HAS HAD DIARRHEA --3-4 EPISODES TODAY C/O DECREASED APPETITE C/O MUCH FATIGUE C/O HEADACHE C/O BODY ACHES PT IS AN EXTREMELY NON-COMPLIANT DIABETIC STATES HE HAS NOT HAD ANY INSULIN FOR AT LEAST 2 WEEKS--STATES HE "RAN OUT" --HAS NOT ATTEMPTED TO CONTACT [facility] FOR REFILLS OR TO MAKE AN APPOINTMENT PT NEVER CHECKS HIS BLOOD SUGAR AND DOES NOT FOLLOW ANY DIET PT ALSO HAS COPD, CONTINUES TO SMOKE 2 PPD, AND RAN OUT OF INHALERS "A COUPLE OF MONTHS AGO" --HAS NOT ATTEMPTED TO CONTACT [facility] FOR THIS EITHER PT HAS NOT HAD COVID-19 VACCINE PT STATES HIS LIVE IN [place]IR[place]END IS ALSO SICK, AND SHE HAS NOT BEEN VACCINATED, NOR SOUGHT CARE EITHER HE REPORTS HIS NEIGHBOR HAS COVID PT HAS NOT BEEN WEARING MASK OR SOCIAL DISTANCING. SYMPTOMS ARE NO DIFFERENT TODAY HAS NOT SOUGHT CARE UNTIL TODAY HAS NOT TAKEN ANYTHING FOR SYMPTOMS PCP: [facility] (EVA MARRUFO DO) Allergies and Home Medications Allergies Coded Allergies: codeine (Unverified Allergy, Mild, 12/03/08) naproxen (Unverified Allergy, Mild, 12/03/08) acetaminophen (Unverified Adverse Reaction, Mild, dizzy, itchy, 12/03/08) Patient Home Medication List Home Medication List Reviewed: Yes (EVA MARRUFO DO) Gabapentin (Gabapentin) 100 Mg Capsule, 100 MG PO Q4HR PRN for Foot burning Prescribed by: ANA SMITH on 11/20/19 1222 Gabapentin (Neurontin) 300 Mg Capsule, 300 MG PO Q6H Prescribed by: NOMI MEADOWS on 04/05/21 0840 Insulin Aspart (Novolog Flexpen) 300 Units/3 Ml Solution, 4 UNITS SQ AC Prescribed by: ANA SMITH on 11/20/19 1140 Insulin Detemir (Levemir Flextouch) 100 Unit/1 Ml Insuln.pen, 12 UNIT SQ HS Prescribed by: ANA SMITH on 11/20/19 1140 Insulin Determir (Levemir) 1,000 Units/10 Ml Soln, 24 UNITS SQ BIDAC Prescribed by: NOMI MEADOWS on 04/05/21 0840 Insuln Asp Prt/Insulin Aspart (Novolog Mix 70-30 Vial) 1 Unit/0.01 Ml Susp, 20 UNIT SQ TID Prescribed by: NOMI MEADOWS on 04/05/21 0840 Pen Needle, Diabetic (Advocate Pen Needle) 1 Each Dis.needle, EACH MC ACHS, (DM E) Prescribed by: ANA SMITH on 11/20/19 1140 Review of Systems Review of Systems Constitutional: see HPI, chills, fever, malaise, weakness EENTM: see HPI, nose congestion, throat pain Respiratory: see HPI, cough, short of breath Cardiovascular: no symptoms reported; No chest pain Gastrointestinal: see HPI; No abdominal pain; diarrhea, loss of appetite, nausea; No vomiting Genitourinary: no symptoms reported Musculoskeletal: see HPI (BODY ACHES) Skin: no symptoms reported Psychiatric/Neurological: See HPI, Headache Hematologic/Lymphatic: No Symptoms Reported Immunological/Allergic: no symptoms reported (EVA MARRUFO DO) Past Zozshrr-Rkuqqk-Odngft Hx Patient Social History Tobacco Use?: Yes Tobacco type used: Cigarettes Smoking Status: Current Everyday Smoker Substance use?: Yes Substance type: Methamphetamine, Marijuana Alcohol Use?: Yes (EVA MARRUFO DO) Immunizations Up To Date Tetanus Booster (TDap): Unknown PED Vaccines UTD: No (EVA MARRUFO DO) Past Medical History Surgery/Hospitalization HX: diabetes Surgeries: Yes Abdominal, Gallbladder, Orthopedic, Vasectomy Respiratory: Yes Chronic Bronchitis, COPD Cardiac: No Neurological: Yes (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 OD'S/SUICIDE ATTEMPTS;SUICIDAL SINCE AGE 13;) Anxiety, Suicide Attempts, Bipolar, Depression Integumentary: No Blood Disorders: No Adverse Reaction/Blood Tranf: No (EVA MARRUFO DO) Family Medical History COPD (chronic obstructive pulmonary disease) 19 MOTHER Cervical cancer 19 MOTHER DVT 19 MOTHER FH: chronic renal insufficiency 19 MOTHER FH: sleep apnea 19 MOTHER Myocardial infarction 19 MOTHER Respiratory disorder 19 MOTHER Visual disorder 19 MOTHER G8 BROTHER No Pertinent Family Hx, Heart Disease SOCIAL HISTORY: -SMOKES 2 PPD -ETOH--HX OF ABUSE/VERY HEAVY DAILY USE, CLAIMS NO USE SINCE 2014 -DRUGS--HX OF METH AND THC USE, STATES HE SMOKED METH, BUT ALSO USED IT IV. . CLAIMS NO USE FOR YEARS. PAST SURGICAL HISTORY: -LEFT INGUINAL HERNIA REPAIR -RIGHT WRIST RECONSTRUCTIVE SURGERY -LEFT KNEE ACL SURGERY -SKIN GRAFTS TO RIGHT FOOT -RIGHT ANKLE FX/ORIF -CHOLECYSTECTOMY -VASECTOMY "TWICE" (EVA MARRUFO DO) Physical Exam Vital Signs - First Documented 04/05/21 05:08 Temp 37.3 Pulse 81 Resp 16 B/P (MAP) 124/82 (96) Pulse Ox 96 O2 Delivery Room Air (NOMI MEADOWS MD) Capillary Refill : Less Than 3 Seconds (EVA MARRUFO DO) Height: 6'0" Weight: 300lbs. 2.0oz. 136.741528ug; 25.00 BMI Method:Stated General Appearance: WD/WN, other (DIRTY, MALODOROUS, UNKEMPT, REEKS OF CI GARETTES. MILDLY DYSPNEIC, BUT ABLE TO TALK IN FULL SENTENCES. 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 ), other (MULTIPLE SORES/SCARS/SCABS OVER MOST OF BODY, ESPECIALLY LEGS. NO SIGNS OF SECONDARY INFECTION) (EVA MARRUFO DO) Focused Exam Lactate Level 04/05/21 05:25: Lactic Acid Level 1.86 (NOMI MEADOWS MD) Lactic Acid Level Laboratory Tests Test 04/05/21 05:25 Lactic Acid Level 1.86 MMOL/L (0.50-2.00) (NOMI MEADOWS MD) Progress/Results/Core Measures Suspected Sepsis SIRS Temperature: Pulse: 81 Respiratory Rate: 16 Laboratory Tests 04/05/21 05:25: White Blood Count 7.7 Blood Pressure 124 /82 Mean: 96 04/05/21 05:25: Lactic Acid Level 1.86 Laboratory Tests 04/05/21 05:25: Creatinine 0.86, Platelet Count 269, Total Bilirubin 0.6 (EVA MARRUFO DO) Results/Orders Lab Results Laboratory Tests Test 04/05/21 05:10 04/05/21 05:13 04/05/21 05:25 04/05/21 08:24 Range/Units Influenza Type A (RT-PCR) Not Detected Not Detecte Influenza Type B (RT-PCR) Not Detected Not Detecte SARS-CoV-2 RNA (RT-PCR) Detected H Not Detecte Glucometer 306 H 379 H 70-110 MG/DL White Blood Count 7.7 4.3-11.0 10^3/uL Red Blood Count 4.88 4.30-5.52 10^6/uL Hemoglobin 15.6 13.3-17.7 g/dL Hematocrit 44 40-54 % Mean Corpuscular Volume 91 80-99 fL Mean Corpuscular Hemoglobin 32 25-34 pg Mean Corpuscular Hemoglobin Concent 35 32-36 g/dL Red Cell Distribution Width 11.9 10.0-14.5 % Platelet Count 269 130-400 10^3/uL Mean Platelet Volume 9.9 9.0-12.2 fL Immature Granulocyte % (Auto) 1 % Neutrophils (%) (Auto) 57 42-75 % Lymphocytes (%) (Auto) 33 12-44 % Monocytes (%) (Auto) 9 0-12 % Eosinophils (%) (Auto) 0 0-10 % Basophils (%) (Auto) 0 0-10 % Neutrophils # (Auto) 4.4 1.8-7.8 10^3/uL Lymphocytes # (Auto) 2.5 1.0-4.0 10^3/uL Monocytes # (Auto) 0.7 0.0-1.0 10^3/uL Eosinophils # (Auto) 0.0 0.0-0.3 10^3/uL Basophils # (Auto) 0.0 0.0-0.1 10^3/uL Immature Granulocyte # (Auto) 0.1 0.0-0.1 10^3/uL Erythrocyte Sedimentation Rate 36 H 0-15 MM/HR D-Dimer 0.50 H 0.00-0.49 UG/ML Sodium Level 133 L 135-145 MMOL/L Potassium Level 4.1 3.6-5.0 MMOL/L Chloride Level 100 98-107 MMOL/L Carbon Dioxide Level 22 21-32 MMOL/L Anion Gap 11 5-14 MMOL/L Blood Urea Nitrogen 7 7-18 MG/DL Creatinine 0.86 0.60-1.30 MG/DL Estimat Glomerular Filtration Rate 95 BUN/Creatinine Ratio 8 Glucose Level 344 H 70-105 MG/DL Lactic Acid Level 1.86 0.50-2.00 MMOL/L Calcium Level 8.8 8.5-10.1 MG/DL Corrected Calcium 9.2 8.5-10.1 MG/DL Magnesium Level 1.6 1.6-2.4 MG/DL Total Bilirubin 0.6 0.1-1.0 MG/DL Aspartate Amino Transf (AST/SGOT) 18 5-34 U/L Alanine Aminotransferase (ALT/SGPT) 32 0-55 U/L Alkaline Phosphatase 140 H 40-136 U/L Lactate Dehydrogenase 226 H 125-220 U/L C-Reactive Protein High Sensitivity 8.03 H 0.00-0.50 MG/DL B-Type Natriuretic Peptide < 10.0 <100.0 PG/ML Total Protein 7.3 6.4-8.2 GM/DL Albumin 3.5 3.2-4.5 GM/DL Procalcitonin 0.08 <0.10 NG/ML Serum Alcohol < 10 <10 MG/DL Test 04/05/21 09:48 04/05/21 09:56 Range/Units Glucometer 439 *H 464 *H 70-110 MG/DL (NOMI MEADOWS MD) My Orders Orders - NOMI MEADOWS MD Epinephrine 1 Mg Injection (Adrenalin I (04/05/21 07:30) Diphenhydramine Injection (Benadryl Inje (04/05/21 07:30) Sotrovimab (Sotrovimab) (04/05/21 07:30) Acetaminophen Tablet (Tylenol Tablet) (04/05/21 07:30) Ondansetron Injection (Zofran Injectio (04/05/21 07:30) Insulin Aspart/Protamine 70/30 (Novolog (04/05/21 08:00) Insulin Determir (Per Unit) (Levemir (Pe (04/05/21 08:00) General/Regular (04/05/21 Breakfast) Insulin Aspart (Novolog) (Novolog (Charg (04/05/21 08:12) Insulin Determir (Per Unit) (Levemir (Pe (04/05/21 08:15) Insulin (Regular) Human (Novolin R (Per (04/05/21 10:00) (NOMI MEADOWS MD) Medications Given in ED Current Medications Medications Dose Ordered Sig/Tyler Route Start Time Stop Time Status Last Admin Dose Admin Dexamethasone Sodium Phosphate 10 mg ONCE ONCE IV 04/05/21 05:45 04/05/21 05:46 DC 04/05/21 05:44 10 MG Insulin Aspart Prota 70%/Aspart 30% 20 unit ONCE ONCE SC 04/05/21 08:00 04/05/21 08:01 DC 04/05/21 08:28 20 UNIT Insulin Detemir 24 unit ONCE ONCE SQ 04/05/21 08:00 04/05/21 08:01 DC 04/05/21 08:25 24 UNIT Insulin Human Regular 10 unit ONCE ONCE IV 04/05/21 10:00 04/05/21 10:01 DC 04/05/21 09:58 10 UNIT Ondansetron HCl 4 mg ONCE ONCE IVP 04/05/21 05:45 04/05/21 05:46 DC 04/05/21 05:44 4 MG Sotrovimab 500 mg/ Sodium Chloride 108 ml @ 216 mls/hr ONCE ONCE IV 04/05/21 07:30 04/05/21 07:59 DC 04/05/21 08:22 216 MLS/HR (NOMI MEADOWS MD) Vital Signs/I&O 04/05/21 04/05/21 04/05/21 05:08 08:20 08:30 Temp 37.3 36.2 36.3 Pulse 81 75 79 Resp 16 20 16 B/P (MAP) 124/82 (96) 118/66 107/64 Pulse Ox 96 94 97 O2 Delivery Room Air Room Air (NOMI MEADOWS MD) Vital Signs/I&O Capillary Refill : Less Than 3 Seconds (EVA MARRUFO DO) Blood Pressure Mean: 96 Point of Care Testing Finger Stick Blood Glucose: 306 Blood Glucose Action Taken: Dr. Marrufo aware (EVA MARRUFO DO) Progress Note : Progress Note PLACED IN ISOLATION ROOM PPE WORN AT ALL TIMES COVID-19 TESTING PERFORMED ACCUCHECK 306 GIVEN IV FLUIDS GIVEN ZOFRAN GIVEN DECADRON 02 SATS 96-98% ON ROOM AIR 0600--CARE TURNED OVER TO DR. MEADOWS, LAB AND XRAY PENDING. (EVA MARRUFO DO) Progress Note #1: Time: 06:50 Progress Note Care assumed from Dr. Marrufo at shift change. I reassessed the patient at approximately 6:40 AM. He is resting comfortably lying on his right side, a little tachypneic with respiratory rate of 26. Clear lung sounds, oxygen saturations 94 to 95% on room air. Patient's labs have been reviewed and are reassuring. He does have hyperglycemia. D-dimer is 0.5. His chest x-ray is clear of infiltrate. I discussed with the patient the use of monoclonal antibody therapy for treatment of COVID-19 infection. I advised him of the risks and benefits of monoclonal antibody therapy. I advised him that it is still under emergency use authorization. He verbalized understanding and is interested in having the infusion. I did talk to him about his insulin and will refill that for him as well as his gabapentin. He tells me that he has an appointment scheduled for the third week of April at [facility]. I further delineated out the timeframe of symptom onset and he states that he started feeling sick 2 days before [place] which would put date of onset 1223. He is within the 10-day window of receiving monoclonal antibody. Progress Note #2: Time: 08:40 Progress Note Patient will get his monoclonal antibody infusion prior to discharge. Progress Note #3: Time: 10:07 Progress Note Completed monoclonal antibody infusion. No complications. Patient's oxygen saturations remained between 96 and 98% on room air. No demonstrable respiratory distress. His blood sugar after eating and his home doses of Levemir and NovoLog went to greater than 400. He was given 10 units of regular insulin IV. He was monitored for an additional 20 minutes and his blood sugar was rechecked and was safe for discharge. Patient is given good return precautions. Prescriptions for his insulin and gabapentin have been sent to [facility]. Patient is stable for discharge. (NOMI MEADOWS MD) Diagnostic Imaging Diagonstic Imaging: Xray Plain Films/CT/US/NM/MRI: chest Comments [facility], [place] NAME: ERIK LEONARD [facility] REC#: [id number] PT STATUS: REG ER : 1970 PHYSICIAN: EVA MARRUFO DO ADMIT DATE: 04/05/21/ER Signed Date of Exam:04/05/21 CHEST 1 VIEW, AP/PA ONLY Indication: Cough and fever Portable chest 5:55 AM Heart size and pulmonary vascularity are normal. Lungs are clear. There are no effusions or pneumothoraces. IMPRESSION: No acute abnormalities in the chest Dictated by: Dictated on workstation # [id number] Dict: 04/05/21630 Trans: 04/05/21631 TC [id number] Interpreted by: RICHARD ARGUELLO MD Electronically signed by: RICHARD ARGUELLO MD 04/05/21631 (NOMI MEADOWS MD) Departure Impression Primary Impression: COVID-19 virus infection Additional Impressions: Diabetes mellitus, insulin dependent (IDDM), uncontrolled COPD (chronic obstructive pulmonary disease) Qualified Codes: J44.9 - Chronic obstructive pulmonary disease, unspecified NON-COMPLIANCE IN ALL ASPECTS OF CARE Disposition: 01 HOME, SELF-CARE Condition: Stable Departure-Patient Inst. Decision time for Depature: 08:34 (NOMI MEADOWS MD) Referrals: [facility],LOCAL PHYSICIAN (PCP) Primary Care Physician Patient Instructions: COVID-19 Overview Add. Discharge Instructions: Please keep your follow-up appointment at [facility] in April. I have written you prescriptions for your Novolog, Levemir and gabapentin. If you have worsening shortness of breath over the next several days especially with fever and cough please come back to the emergency room for reevaluation. You should get a finger oxygen monitor from [facility] or any other pharmacy of your choice and monitor your oxygen level. If it drops below 90 you need to come back to the emergency department. Scripts Gabapentin (Neurontin) 300 Mg Capsule 300 MG PO Q6H, #60 CAP Prov: NOIM MEADOWS MD 04/05/21 Insulin Determir (Levemir) 1,000 Units/10 Ml Soln 24 UNITS SQ BIDAC, #10 ML Prov: NOMI MEADOWS MD 04/05/21 Insuln Asp Prt/Insulin Aspart (Novolog Mix 70-30 Vial) 1 Unit/0.01 Ml Susp 20 UNIT SQ TID, #10 ML Prov: NOMI MEADOWS MD 04/05/21 Copy Copies To 1: FARAZ FERGUSON LISA K DO Apr 05, 2021 05:42 NOMI MEADOWS MD Apr 05, 2021 06:56
[2021-04-05 05:43] LABS: CALCIUM 8.8 MG/DL (8.5-10.1)
[2021-04-05 05:44] LABS: GLUCOSE 344 MG/DL (70-105); TOTAL PROTEIN 7.3 GM/DL (6.4-8.2)
[2021-04-05 05:45] LABS: CARBON DIOXIDE 22 MMOL/L (21-32)
[2021-04-05] MEDS ORDERED: ONDANSETRON 4 MG/2 ML (SDV) Z0FRAN IVP ONE (05:45)
[2021-04-05 05:46] LABS: BILIRUBIN,TOTAL 0.6 MG/DL (0.1-1.0)
[2021-04-05 05:48] LABS: ALKALINE PHOSPHATASE 140 U/L (40-136); CREATININE SERUM 0.86 MG/DL (0.60-1.30); GFR ESTIMATED 95
[2021-04-05 05:49] LABS: BUN/CREATININE RATIO 8
[2021-04-05 05:51] LABS: ALANINE AMINOTRANSFERASE 32 U/L (0-55); MAGNESIUM 1.6 MG/DL (1.6-2.4)
[2021-04-05 05:54] LABS: ERYTHROCYTE SEDIMENTATION RATE 36 MM/HR (0-15)
--- NOTE | 2021-04-05 06:33 | Diagnostic Imaging Report ---
Indication: Cough and fever Portable chest 5:55 AM Heart size and pulmonary vascularity are normal. Lungs are clear. There are no effusions or pneumothoraces. IMPRESSION: No acute abnormalities in the chest Dictated by: Dictated on workstation # [email or web address]
[2021-04-05] MEDS ORDERED: ONDANSETRON 4 MG/2 ML (SDV) Z0FRAN IV PRN (07:30)
[2021-04-05] MEDS ORDERED: ACETAMINOPHEN 500 MG TAB (TYLENOL) PO PRN (07:30)
[2021-04-05] MEDS ORDERED: diphenhydrAMINE 50 MG/ML INJ (BENADRYL) IV PRN (07:30)
[2021-04-05] MEDS ORDERED: SOTROVIMAB 500 MG/NS 100 ML IVPB IV ONE ×2 (07:30)
[2021-04-05] MEDS ORDERED: EPINEPHrine INJECTION 1 MG/ML AMP IM PRN (07:30)
[2021-04-05] MEDS ORDERED: inSUlin ASPART/PROTA (NovoLOG 70/30) CHARGE PER UNIT SC ONE (08:00)
[2021-04-05] MEDS ORDERED: inSUlin ASPART (NovoLOG) 1 UNIT/0.01 ML (CHARGE PER UNIT) ONE (08:12)
[2021-04-05] MEDS ORDERED: GABA300C PO (08:40)
[2021-04-05] MEDS ORDERED: INSU100V5 SQ (08:40)
[2021-04-05] MEDS ORDERED: INSA70301U SQ (08:40)
[2021-04-05] MEDS ORDERED: inSUlin (REGULAR) HUMAN 1 UNIT/0.01 ML (CHARGE PER UNIT) IV ONE (10:00)
[2021-04-05 10:50] VITALS: BP 129/89
== END 2021-04-05 10:50 | disposition home or self-care (01) ==
LOC: EDUNIT# 05:07 → ER 05:09
DX: U07.1 COVID-19 (principal); E11.65 Type 2 diabetes mellitus with hyperglycemia; J44.9 Chronic obstructive pulmonary disease, unspecified; G40.909 Epilepsy, unspecified, not intractable, without status epilepticus; F17.210 Nicotine dependence, cigarettes, uncomplicated; Z91.19 Patient's noncompliance with other medical treatment and regimen; Z79.4 Long term (current) use of insulin; Z79.899 Other long term (current) drug therapy
CPT/HCPCS: 71045; 80053; 82947; 83605; 83615; 83735; 83880; 84145; 85025; 85379; 85652; 86141; 87040; 87636; 93041; 96372; 96374; 96375; 99284; G0480; M0245; 36415; 80320

== ENCOUNTER → 2023-02-27 | Outpatient (CLI) | payer OTHER ==
[~2023-02-27] MED LIST changes: +GABA300C PO; +INSA70301U SQ; -INSU100I29 SQ; +INSU100I30 SQ; +INSU100V5 SQ
--- NOTE | 2023-02-27 16:38 | Diagnostic Imaging Report ---
KNEE, 2 VIEWS, BILATERAL INDICATION: Bilateral knee pain COMPARISON: None available. TECHNIQUE: 2 views of each knee for total of 4 views. FINDINGS: Prior ACL reconstruction on the left. 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 This is severe in nature. No knee joint effusion on either side. No fracture concerning focal osseous lesions. IMPRESSION: 1. Left knee severe osteoarthritis. 2. Moderate osteoarthritis of the right knee. Dictated by: Dictated on workstation # [id number]
== END ==
LOC: RAD 10:22
PROVIDERS: ATTEND Family Medicine
DX: Z02.71 Encounter for disability determination (principal); M17.0 Bilateral primary osteoarthritis of knee